=== PATIENT | male | born 1990 | race Caucasian/White ===

== ENCOUNTER 2017-12-28 20:24 | Inpatient (IN) | payer OTHER ==
[~2017-12-28] VITALS: Ht 188 cm; Wt 75.4 kg
--- NOTE | 2017-12-28 20:29 | ED PSYCHIATRIC COMPLAINT ---
History of Present Illness General Chief Complaint: Psychiatric Related Complaint Stated Complaint: +SI Source: patient, EMS, police Exam Limitations: no limitations Vital Signs & Intake/Output Vital Signs & Intake/Output Vital Signs Date Time Temp Pulse Resp B/P B/P Pulse O2 O2 Flow FiO2 Mean Ox Delivery Rate 12/29 1308 97.8 91 18 128/73 94 Room Air 12/29 1055 97.6 90 17 133/84 12/29 1052 97.6 90 17 133/84 92 Room Air 12/29 0840 98.2 88 17 129/73 12/29 0836 98.2 88 17 129/73 96 Room Air 12/29 0616 96.2 95 16 117/67 99 Room Air 12/29 0010 88 16 132/72 100 Room Air Room Air 12/28 2251 98.1 106 20 136/71 100 Room Air 12/28 2041 Room Air 12/28 2039 98.4 101 22 148/74 99 Room Air ED Intake and Output 12/29 0000 12/28 1200 Intake Total 240 Output Total Balance 240 Intake, Oral 240 Triage Nurses Notes Reviewed? yes Onset: Gradual Duration: week(s):, waxing and waning Timing: recent history Severity: moderate Associated Symptoms: anxiety, suicidal ideation HPI: 27 YO gentleman, h/o depression, was previously taking prozac, brought in by emiliano LADD for suicidal ideation. He notes that he has been under increased stress lately due to a recent move. His fiance called 911 due to making suicidal comments. He inflicted superficial abrasions on his left wrist. He notes that he also fell yesterday, landing with his face on the pavement. He did not lose consciousness. He denies etoh or drugs. He asks to smoke a cigarette. (Seth RAMOS,Benjamin Krishna) Allergies Coded Allergies: No Known Allergies (12/28/17) Reconcile Medications No Known Home Medications (Kelley RAMOS,Emile Zelaya) Past History Medical History Any Pertinent Medical History? see below for history Psychiatric: depression Surgical History Surgical History: non-contributory Family History Hx Contributory? No (Benjamin Ann MD) Review of Systems Review of Systems Constitutional: Reports: no symptoms. EENTM: Reports: no symptoms. Respiratory: Reports: no symptoms. Cardiovascular: Reports: no symptoms. GI: Reports: no symptoms. Genitourinary: Reports: no symptoms. Musculoskeletal: Reports: no symptoms. Skin: Reports: no symptoms. Neurological/Psychological: Reports: no symptoms. Hematologic/Endocrine: Reports: no symptoms. Immunologic/Allergic: Reports: no symptoms. All Other Systems: Reviewed and Negative (Seth RAMOS,Benjamin Krishna) Physical Exam Physical Exam General Appearance: well developed/nourished, mild distress Head: mild abrasions on nasal bridge and forehead Eyes: Bilateral: PERRL, EOMI. Ears, Nose, Throat: normal pharynx, normal ENT inspection, hearing grossly normal Neck: normal inspection, supple Respiratory: normal breath sounds Cardiovascular: regular rate/rhythm Gastrointestinal: soft, non-tender Extremities: normal range of motion Neurological/Psychiatric: agitated, anxious Appearance/Memory/Insight: denies illness, disheveled, impaired insight Behavoir/Eye Contact/Speech: belligerent Thoughts/Hallucinations: no apparent hallucination Skin: intact, normal color, warm/dry SAD PERSONS SAD PERSONS Response Value Male Sex? yes 1 Depression/Hopelessness? yes 2 Excessive Ethanol/Drug Use? yes 1 Rational Thinking Loss? yes 2 Single//? yes 1 Social Support? has no support 1 Total 8 SAD PERSONS Done? yes (Seth RAMOS,Benjamin Krishna) Progress Differential Diagnosis: drug intoxication, alcohol intoxication vs other. Plan of Care: Orders Procedure Date/time Status Regular Diet 12/29 B Active Admit to inpatient psych 12/29 1427 Active CIWA 12/29 0742 Active Continuous Observation Monitor 12/28 2028 Active URINE DRUG SCREEN FOR ER ONLY 12/28 2028 Complete ETHANOL 12/28 2028 Complete COMPREHENSIVE METABOLIC PANEL 12/28 2028 Complete CBC WITHOUT DIFFERENTIAL 12/28 2028 Complete ED CRISIS PSYCH CONSULT 12/28 2028 Active Current Medications Sig/Elzbieta Start time Last Medication Dose Stop Time Status Admin Acetaminophen 650 MG Q4P PRN 12/28 2029 UNVr (Tylenol) Laboratory Tests 12/28/172104: Anion Gap 16, Estimated GFR > 60, BUN/Creatinine Ratio 11.1, Glucose 98, Calcium 9.2, Total Bilirubin 0.4, AST 50, ALT 37, Alkaline Phosphatase 70, Total Protein 8.0, Albumin 5.1 H, Globulin 2.9, Albumin/Globulin Ratio 1.8, CBC w Diff NO MAN DIFF REQ, RBC 4.88, MCV 99.1 H, MCH 32.5 H, MCHC 32.8 L, RDW 12.4, MPV 6.8 L , Gran % 54.1, Lymphocytes % 35.7, Monocytes % 8.6, Eosinophils % 1.0, Basophils % 0.6, Absolute Granulocytes 4.3, Absolute Lymphocytes 2.8, Absolute Monocytes 0.7 H, Absolute Eosinophils 0.1, Absolute Basophils 0, Serum Alcohol 325.0 12/28/17 210: Urine Opiates Screen < 100, Methadone Screen < 40, Barbiturate Screen < 60, Ur Phencyclidine Scrn < 6.00, Amphetamines Screen < 100, U Benzodiazepines Scrn < 85, Urine Cocaine Screen < 50, Urine Cannabis Screen 7.40 Diagnostic Imaging: Viewed by Me: CT Scan. Discussed w/RAD: CT Scan. Radiology Impression: PATIENT: PAIGE AMBROSIO PRESENT AGE: 27 PATIENT ACCOUNT NO: [id number] : 90 LOCATION: [facility] ORDERING PHYSICIAN: Benjamin Ann MD SERVICE DATE: 12/28/17 EXAM TYPE: CAT - CT CERV SPINE WO IV CONTRAST; CT HEAD WO IV CONTRAST; CT MAXILLOFACIAL W/O CON EXAMINATION: CT HEAD WITHOUT CONTRAST CT CERVICAL SPINE WITHOUT CONTRAST CT MAXILLOFACIAL WITHOUT CONTRAST CLINICAL INFORMATION: Head injury. Facial injury. Headache. COMPARISON: None. TECHNIQUE: Contiguous axial imaging was performed from the skullbase to vertex without intravenous administration of contrast. Multidetector helical imaging was performed through the cervical spine and maxillofacial region. DLP: 1523 mGy-cm. FINDINGS: HEAD: There is no evidence of acute intracranial hemorrhage or territorial infarction. No abnormal mass effect or midline shift is seen. Mensah to white matter differentiation is well preserved. No extra-axial fluid collections are identified. The ventricles are normal in size. Brain parenchymal attenuation is normal. The osseous structures and soft tissues are normal. The mastoid air cells are well aerated. MAXILLOFACIAL: No maxillofacial fracture is identified. The orbits are normal. The mandible is intact. No periapical lucencies are seen. The soft tissues are unremarkable. CERVICAL SPINE: No acute fracture or dislocation is identified in the cervical spine. The disc spaces are maintained. No large disc protrusion is noted. The atlantoaxial articulation is normally maintained. The paraspinal soft tissues are normal. The lung apices are clear. IMPRESSION: 1. No acute intracranial pathology. 2. No evidence of acute cervical spine traumatic injury. 3. No maxillofacial fractures. DICTATED BY: Harry Galaviz MD DATE/TIME DICTATED:12/28/172137 CLAM SHUCKER:KASSIDY DATE/TIME TRANSCRIBED:2137 CONFIDENTIAL, DO NOT COPY WITHOUT APPROPRIATE AUTHORIZATION. < Electronically signed in Other Vendor System> SIGNED BY: Harry Galaviz MD 12/28/172155 Hand-Off Endorsed To: Emile Benson MD Endorsed Time: 0700 Pending: consult (Seth RAMOS,Benjamin Krishna) Comments: 12/29/2017 7:10:58 AM patient signed out to me by Dr. Ann at shift size changer. (Kelley RAMOS,Emile Zelaya) Departure Departure Disposition: STILL A PATIENT Condition: Stable Clinical Impression Primary Impression: Alcohol intoxication Secondary Impressions: Depression, Head injury Departure Forms: Customer Survey General Discharge Information (Seth RAMOS,Benjamin Krishna) Departure Prescriptions: Current Visit Scripts No Known Home Medications Psych Admission Note Psychiatric Admission: I have reviewed all the pertinent lab results and diagnostic results. PAIGE AMBROSIO will be admitted to our inpatient Psychiatric unit for treatment and care. (Kelley RAMOS,Emile Zelaya)
[2017-12-28 21:13] LABS: ABSOLUTE BASOPHIL COUNT 0 /CUMM (0.0-0.2); ABSOLUTE EOSINOPHIL COUNT 0.1 /CUMM (0.0-0.7); ABSOLUTE GRANULOCYTE CT 4.3 /CUMM (1.4-6.5); ABSOLUTE LYMPH COUNT 2.8 /CUMM (1.2-3.4); ABSOLUTE MONOCYTE COUNT 0.7 /CUMM (0.10-0.60); BASOPHIL % 0.6 % (0.0-2.0); GRANULOCYTE % 54.1 % (42.2-75.2); HEMATOCRIT 48.4 % (42-52); MEAN CORPUSCULAR HGB 32.5 PG (27.0-31.0); MEAN CORPUSCULAR HGB CONC 32.8 G/DL (33.0-37.0); MEAN CORPUSCULAR VOLUME 99.1 FL (80.0-94.0); MEAN PLATELET VOLUME 6.8 FL (7.4-10.4); PLATELET COUNT 326 /CUMM (130-400); RBC DISTRIBUTION WIDTH 12.4 % (11.5-14.5); RED BLOOD CELL CT 4.88 /CUMM (4.70-6.10); WHITE BLOOD CELL COUNT 7.9 /CUMM (4.8-10.8)
--- NOTE | 2017-12-28 21:56 | CT SCAN REPORT ---
EXAMINATION: CT HEAD WITHOUT CONTRAST CT CERVICAL SPINE WITHOUT CONTRAST CT MAXILLOFACIAL WITHOUT CONTRAST CLINICAL INFORMATION: Head injury. Facial injury. Headache. COMPARISON: None. TECHNIQUE: Contiguous axial imaging was performed from the skullbase to vertex without intravenous administration of contrast. Multidetector helical imaging was performed through the cervical spine and maxillofacial region. DLP: 1523 mGy-cm. FINDINGS: HEAD: There is no evidence of acute intracranial hemorrhage or territorial infarction. No abnormal mass effect or midline shift is seen. Mensah to white matter differentiation is well preserved. No extra-axial fluid collections are identified. The ventricles are normal in size. Brain parenchymal attenuation is normal. The osseous structures and soft tissues are normal. The mastoid air cells are well aerated. MAXILLOFACIAL: No maxillofacial fracture is identified. The orbits are normal. The mandible is intact. No periapical lucencies are seen. The soft tissues are unremarkable. CERVICAL SPINE: No acute fracture or dislocation is identified in the cervical spine. The disc spaces are maintained. No large disc protrusion is noted. The atlantoaxial articulation is normally maintained. The paraspinal soft tissues are normal. The lung apices are clear. IMPRESSION: 1. No acute intracranial pathology. 2. No evidence of acute cervical spine traumatic injury. 3. No maxillofacial fractures.
[2017-12-29] VITALS (8 sets, daily range): BP systolic 126–147; BP diastolic 70–88
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
[2017-12-30] VITALS (8 sets, daily range): BP systolic 118–136; BP diastolic 73–96
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
--- NOTE | 2017-12-30 15:40 | SOCIAL WORKER PROG NOTE PSYCH ---
Social Work Progress Note Progress Note Nela attempted to complete a social history at 2:00 pm today but pt was in group.
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
[2017-12-31] VITALS (8 sets, daily range): BP systolic 115–128; BP diastolic 62–79
--- NOTE | 2017-12-31 13:54 | SOCIAL WORKER PROG NOTE PSYCH ---
Social Work Progress Note Progress Note Spoke with Amauri's Father. He reported seeing Amauri last night and thought he looked good. He feels that Amauri is appreciative of being here. He would love for Amauri to be able to come on vacation with the family. He feels it would be a positive thing. He has no safety concerns about Amauri and shared that he was quite shocked to hear he was making suicidal statements. He feels Amauri has alot going for him. He feels he just needs to continue to work on the drinking. If he were to go on the trip he would return on Thursday. He would like Amauri to try and see if he can do the day time IOP. If Amauri goes on the trip tomorrow. He would need to leave the hospital by 8-8:30am to make his flight in [place]. Supportive meeting held with Amauri and Juju (significant other). Dr. Dias and Kamala (medical student) were also in attendance. Juju expressed her concerns around Amauri's drinking and her ability to trust him. Amauri understands that he will need to show he is working on his recovery to earn her trust. He was agreeable to doing [facility] IOP the dual 10-1pm program. He thinks this will work out okay with his work schedule. He is also open to trying AA. We talked about Amauri going on the family vacation with Dad. Juju appears ambivalent about going on the vacation and may end up staying home. Amauri stated he understood. She expressed how stressful the last few weeks have been and how she needs time to just decompress. She also shared that she is speaking to a counselor around how Amauri's behaviors have impacted her. She is commited to working on the relationship and brought up couple's therapy as well. Amauri seems agreeable to trying this. They talked about working out their issues around starting to live together and how compromise on things would be helpful. Juju asked if Amauri would allow her to know what is going on with him in IOP? He agreed and understands there needs to be transparency. She is agreeable to picking him up tomorrow between 8-8:30am to get home. Scheduled an IOP intake at [facility] for 01/07 9:30am.
--- NOTE | 2017-12-31 14:08 | CP SOUTH PROGRESS NOTE PSYCH ---
Psych (Inpt) Progress Note Progress Note Include the following elements, when applicable: Involvement in the active treatment of the patient with behavioral observations of the patient and the patient's response to the treatment. Review of the ongoing treatment process in the context of the treatment plan. Indication of how multi-disciplinary staff members are carrying out the treatment plan. Plans for future interventions and recommendations for revision of the treatment plan. Liaison with other physicians/providers. Progress Note: Case and treatment plan discussed in team meeting. Staff reports that the patient is denying SI. Couple's meeting is scheduled for 3 pm. Patient seen with medical student at 10:18 a.m. Thinking seems cogent. Appears awake and alert. Seems less fragile today, less labile. Reports he needs to go into a program when he leaves here. Reports he is accepting being here. Feels supported by girlfriend and parents. Wants to attend AA 3-4x/week. Wants to go on family trip tomorrow to [place]. Affect is calm and blunted. Mood: "I'm feeling optimistic about things... a little worried about work." Rates sad mood and anxiety both about 3-4/10. Denies feeling hopeless, helpless or worthless. Denies feeling guilty anymore. Denies active and passive suicidal ideation. Denies homicidal ideation. Denies auditory and visual hallucinations and paranoid ideation. Reports sleep is okay but his stomach was a little upset. Appetite is fine, improving from time of admission. Reports energy is good. Tolerating medications except for mild stomach queasiness. IMPRESSION: Slow progress. Continue present treatment plan. Await outcome of today's couple's meeting. Treatment team is trying to assess possibility of discharge tomorrow, which is patient's request.
[2017-12-31] MEDS ORDERED: NICORELIEF2 MG PO (15:33)
[2017-12-31] MEDS ORDERED: ACAMPROSATE CA333 M1 PO (15:33)
[2017-12-31] MEDS ORDERED: TRAZODONE HCL50 M1 PO (15:33)
[2017-12-31] MEDS ORDERED: GABAPENTIN300 M2 PO (15:33)
--- NOTE | 2017-12-31 15:40 | Patient Discharge Instructions ---
Psych Discharge Inst General Discharge Information Reason for Admission: Reportedly made suicidal statements verbally and by text. Cut left wrist superficially with a kitchen knife. Had been drinking. Psy Discharge Primary Diag+ Unspecified depression Psy Discharge Secondary Diag+ Alcohol use disorder Superficial L wrist lac Abrasions on face Summary Tests/Major Procedures Lab ALT 37 U/L 12/28/172104 AST 50 U/L 12/28/172104 Albumin 5.1 g/dL H 12/28/172104 BUN 10 mg/dL 12/28/172104 Carbon Dioxide 27 mmol/L 12/28/172104 Chloride 101 mmol/L 12/28/172104 Cholesterol 183 MG/DL 12/28/172104 Cholesterol/HDL Ratio 2 % 12/28/172104 Creatinine 0.9 mg/dL 12/28/172104 Estimated GFR > 60 ml/min 12/28/172104 Glucose 98 mg/dL 12/28/172104 HDL Cholesterol 97 mg/dL H 12/28/172104 Hemoglobin A1c 5.0 % 12/28/172104 LDL Cholesterol, Calc 76 mg/dL 12/28/172104 Potassium 4.4 mmol/L 12/28/172104 Sodium 144 mmol/L 12/28/172104 TSH &T3 &Free T4 Intrp 0.758 uIU/mL 12/28/172104 Absolute Monocytes 0.7 /CUMM H 12/28/172104 Hct 48.4 % 12/28/172104 Hgb 15.9 G/DL 12/28/172104 MCH 32.5 PG H 12/28/172104 MCHC 32.8 G/DL L 12/28/172104 MCV 99.1 FL H 12/28/172104 MPV 6.8 FL L 12/28/172104 Plt Count 326 /CUMM 12/28/172104 RBC 4.88 /CUMM 12/28/172104 WBC 7.9 /CUMM 12/28/172104 Serum Alcohol 325.0 MG/DL 12/28/172104 SERVICE DATE: 12/28/17 EXAM TYPE: CAT - CT CERV SPINE WO IV CONTRAST; CT HEAD WO IV CONTRAST; CT MAXILLOFACIAL W/O CON EXAMINATION: CT HEAD WITHOUT CONTRAST CT CERVICAL SPINE WITHOUT CONTRAST CT MAXILLOFACIAL WITHOUT CONTRAST CLINICAL INFORMATION: Head injury. Facial injury. Headache. COMPARISON: None. TECHNIQUE: Contiguous axial imaging was performed from the skullbase to vertex without intravenous administration of contrast. Multidetector helical imaging was performed through the cervical spine and maxillofacial region. DLP: 1523 mGy-cm. FINDINGS: HEAD: There is no evidence of acute intracranial hemorrhage or territorial infarction. No abnormal mass effect or midline shift is seen. Mensah to white matter differentiation is well preserved. No extra-axial fluid collections are identified. The ventricles are normal in size. Brain parenchymal attenuation is normal. The osseous structures and soft tissues are normal. The mastoid air cells are well aerated. MAXILLOFACIAL: No maxillofacial fracture is identified. The orbits are normal. The mandible is intact. No periapical lucencies are seen. The soft tissues are unremarkable. CERVICAL SPINE: No acute fracture or dislocation is identified in the cervical spine. The disc spaces are maintained. No large disc protrusion is noted. The atlantoaxial articulation is normally maintained. The paraspinal soft tissues are normal. The lung apices are clear. IMPRESSION: 1. No acute intracranial pathology. 2. No evidence of acute cervical spine traumatic injury. 3. No maxillofacial fractures. Studies Pending at DC: None. Patient Instructions Contact Information Your Psychiatrist on [facility] was Benjamin Dias MD * If you are experiencing an emergency related to this hospitalization, please call [phone] to contact the treating psychiatrist or the psychiatrist-on- call. * To Request a copy of your medical records, please contact the Medical Records Department at [phone]. * To request results of studies pending at the time of discharge, please call [phone]. * Continue your Medications until directed to stop by your Healthcare provider. General Medication Information Please continue to take your new medications and your continued home medications , unless otherwise indicated on your discharge medication list, or unless directed by your MD or [facility] to stop them. Special Instructions Diet Regular Activity Normal Other Inst/Recommendations Stay away from drugs and alcohol! - Tobacco Use Treatment Offered Post DC Medications Offered: Script Given-See Med List Post DC Tobacco Treatment Plan: [facility] Program Appt Time: 1600 - EtOH/Drug Use D/O Treatment Offered Post DC Medications Offered: Med Not Indicated for D/O (Cam[place]) Post DC EtOH/SubAbuse TX Plan: [place] SubAbuse/Dual IOP Program Appt Date: 01/07/18 Program Appt Time: 0900 (Exact time TBA.) Metabolic Screening ([x]) Not Applicable, patient not on a neuroleptic. OR () Patient on a neuroleptic(s) . Enter below results for Hemoglobin A1C, and lipid panel if obtained during the last 365 days. BMI: Blood Pressure: 128/79 Laboratory Results From [place] EHR (If applicable): Advance Directives Does the Patient have Medical Advance Directives No/Refused further info Does Pt have Psychiatric Advance Directives? No/Refused further info Does Patient have a Designated Surrogate Decision Maker: No Information About Psychiatric Advance Directives Provided? Refused Discharge Plan Post Hospital Treatment Plan: 1) [place]. To be with family at all times. No drinking or drugging! 2) Then to return home to live with girlfriend, Juju. 3) Referral to Dual IOP intake on 01/07/18.
--- NOTE | 2017-12-31 16:25 | IP INCIDENTAL NOTE PSYCH ---
Incidental Note Notation: workers' compensation mediator spoke with patient's father, who supports patient's going on trip to [place] tomorrow with family. Patient seen at couple's meeting with his girlfriend, Juju, with Angélica Petersen LCSW and with medical student. PLAN: Discharge tomorrow morning. Dr. Miguel has agreed to see patient in the morning.
[2018-01-01 07:41] VITALS: BP 127/90
[2018-01-01 07:45] VITALS: BP 127/90
--- NOTE | 2018-01-01 08:00 | CP SOUTH PROGRESS NOTE PSYCH ---
Psych (Inpt) Progress Note Progress Note Case was discussed with Dr. Dias yesterday. I reviewed the patient's electronic record. I interviewed the patient. Vital Signs Date Time Temp Pulse B/P 01/01 0745 97.6 60 127/90 01/01 0741 97.6 60 127/90 01/01 2020 98.8 68 118/62 12/31 2018 98.8 68 118/62 12/31 1609 90 126/78 12/31 1607 90 126/78 12/31 1222 82 128/79 Mental Status Examination: The patient was alert and oriented to time, place, and person. The patient reported that he is looking forward to spending a few nights with his family in [place]. He reported that he feels ready for discharge and committed to doing the dual diagnosis program at the intensive outpatient program starting on 01/07/2018. He denies feeling depressed, and his affect looked reasonably within normal range. He denied feeling hopeless, and denied wishing , and denied thinking of suicide. The patient reported that his anxiety is manageable. The patient denied any hallucinations, he denied feeling paranoid, and there were no delusions during the interview. The patient was coherent with no evidence of thought disorder. There was no evidence that he was responding to internal stimuli. His speech was normal, not pressured, and not slurred. He reported that he didn't sleep that great last night but because he felt cold. Assessment: A 27-year-old engaged white male who was admitted because of thoughts of suicide and superficial cuts to wrist while intoxicated. Patient was admitted on a physician emergency certificate. He seems to have had an uneventful detoxification with no severe withdrawal. He seems to have shown improvement in his mood anxiety and insight. He has been free of thoughts of suicide for the past 48 hours and is willing to do the dual diagnosis intensive outpatient program upon his return from a family vacation in [place]. The patient is slated for discharge for today and does not seem to present an eminent risk to self or others, and there is no evidence of grave disability. The patient is appropriate for discharge. Treatment plan update: Discharge today to go with family for a vacation in [place] for 4 nights Patient is to do the dual diagnosis intensive outpatient program starting on January 07 upon his return from vacation Please see the discharge summary and instructions for details on his discharge medications, discharges diagnosis, and aftercare plans/referrals.
--- NOTE | 2018-01-01 08:07 | DISCHARGE SUMMARY REPORT-PSYCH ---
Visit Information Visit Dates/Diagnosis' Admission Date: 12/29/17 Discharge Date: 01/01/18 Reason for Admission: Reportedly made suicidal statements verbally and by text. Cut left wrist superficially with a kitchen knife. Had been drinking. Psy Discharge Primary Diag: Unspecified depression Psy Discharge Secondary Diag: Alcohol use disorder Superficial L wrist lac Abrasions on face Hospital Course Significant Lab Findings: There were no significant abnormalities and the completed: Blood count of the chemistry Lab Serum Alcohol 325.0 MG/DL 12/28/172104 Course Complications: The patient did not have any complications when he was on the inpatient psychiatric unit Consultations: The patient had a history and physical examination performed by the lab head/ hospitalist. Please refer to the patient's electronic health record for the details of the H&P. Allergies: Coded Allergies: No Known Allergies (12/28/17) Hospital Course/TX Response: The patient had a relatively short stay in the hospital. He was safely detoxified from alcohol without any major withdrawals. His withdrawal was uneventful, no delirium and no seizures. 12/30/2017: Initial Impression and Plan (Benjamin Dias MD): The patient is here after cutting wrist superficially and having made suicidal comments while intoxicated. Hx alcohol use problems. Likely has relationship conflict with girlfriend. They are in a new home together. Patient has work stress. DSM 5 Diagnosis(es): Unspecified depression. Alcohol use disorder. Superficial L wrist laceration. Abrasions on face. Treatment Plan: The patient will be monitored on the unit for safety, alcohol withdrawal and mood disorder. States he gets depressed when drinking and anxious when not drinking. He would like to continue with Neurontin prn. He is not interested in an antidepressant. Major risks/benefits of Campral were discussed with the patient and he would like this medication to help with alcohol cravings. Additional information is needed from collaterals. Anticipate once clinically stable, that the patient will return to home and girlfriend and be referred to an IOP. He had been planning on [facility] prior to his admission here. \ 12/31/2017: (Benjamin Dias MD): Slow progress. Continue present treatment plan. Await outcome of today's couple's meeting. Treatment team is trying to assess possibility of discharge tomorrow, which is patient's request. 01/01/2018: (Dr. Myriam MD): Mental Status Examination: The patient was alert and oriented to time, place, and person. The patient reported that he is looking forward to spending a few nights with his family in [place]. He reported that he feels ready for discharge and committed to doing the dual diagnosis program at the intensive outpatient program starting on 01/07/2018. He denies feeling depressed, and his affect looked reasonably within normal range. He denied feeling hopeless, and denied wishing , and denied thinking of suicide. The patient reported that his anxiety is manageable. The patient denied any hallucinations, he denied feeling paranoid, and there were no delusions during the interview. The patient was coherent with no evidence of thought disorder. There was no evidence that he was responding to internal stimuli. His speech was normal, not pressured, and not slurred. He reported that he didn't sleep that great last night but because he felt cold. Assessment: A 27-year-old engaged white male who was admitted because of thoughts of suicide and superficial cuts to wrist while intoxicated. Patient was admitted on a physician emergency certificate. He seems to have had an uneventful detoxification with no severe withdrawal. He seems to have shown improvement in his mood anxiety and insight. He has been free of thoughts of suicide for the past 48 hours and is willing to do the dual diagnosis intensive outpatient program upon his return from a family vacation in [place]. The patient is slated for discharge for today and does not seem to present an eminent risk to self or others, and there is no evidence of grave disability. The patient is appropriate for discharge. Treatment plan update: Discharge today to go with family for a vacation in [place] for 4 nights Patient is to do the dual diagnosis intensive outpatient program starting on January 07 upon his return from vacation Please see the discharge summary and instructions for details on his discharge medications, discharges diagnosis, and aftercare plans/referrals. Discharge HBIPS - Tobacco Use Treatment Offered Post DC Medications Offered: Script Given-See Med List Post DC Tobacco Treatment Plan: Refused Tobacco Tx Pgm - EtOH/Drug Use D/O Treatment Offered Post DC Medications Offered: Script Given-See Med List Post DC EtOH/SubAbuse TX Plan: [facility] SubAbuse/Dual IOP Metabolic Screening - Screen if on a Neuroleptic Medication - Metabolic screening should include: - Blood Pressure, BMI, Glucose or Hgb A1c, & a - Lipid profile from within the past 365 days. Metabolic Screening ([X]) Not Applicable, patient not on a neuroleptic. Discharge Instructions General Discharge Information Multiple Neuroleptics: ([X]) Not Applicable Discharge Diet Regular Discharge Activity Normal DC Disposition: Discharged to home/self-care patient will be going on short vacation with family to [place] and then starting the dual diagnosis IOP at [facility] on 01/07/2018 Referrals Ordered Referrals Provider Referral 01/07/18 For Groups: [[facility] IOP] [facility] Intensive Outpatient Program for mental health and substance use Intake 01/07/18 9:30am [address] [place] [address] Prescriptions Start taking the following new medications: Nicotine (Nicorelief) 2 MG GUM 2 Milligram ORAL EVERY 2 HOURS NEEDED as needed for nicotine craving Qty = 100 No Refills Comments: Last Taken:12/31/17 Time:2045 Gabapentin (Gabapentin) 300 MG CAPSULE 1 Capsule ORAL EVERY SIX HOURS NEEDED as needed for ANXIETY/AGITATION/ INSOMNIA Qty = 42 No Refills Comments: Last Taken:12/31/17 Time:0800 Trazodone HCl (Trazodone HCl) 50 MG TABLET 1 Tablet ORAL AT BEDTIME as needed for INSOMNIA Qty = 14 No Refills Comments: Last Taken:12/30/17 Time:2130 Acamprosate Calcium (Acamprosate Calcium) 333 MG TABLET.DR 2 Tablet ORAL THREE TIMES DAILY Qty = 84 No Refills Instructions: Campral 666 mg po t.i.d. Comments: Last Taken:01/01/18 Time:0745 Other Inst/Recommendations Stay away from drugs and alcohol! Studies Pending at Discharge None. Copies To: [facility]-
--- NOTE | 2018-01-01 09:04 | SOCIAL WORKER PROG NOTE PSYCH ---
Social Work Progress Note Progress Note Amauri was ready to go early this morning. He was smiling and mood stable. Girlfriend Juju came shortly after 8am to pick him up. He requested a letter stating he was here receiving tx. The letter was typed up and given to him. Reviewed his appt. for IOP scheduled for next at 9:30a.
--- NOTE | 2018-01-01 09:05 | SOCIAL WORKER PROG NOTE PSYCH ---
Social Work Progress Note Faxed Referral(s) Referred To: [facility] Transition of Care Documents sent: Health Summary Faxed to: [facility] Fax #: [phone] Faxed by: Angélica Petersen Date faxed: 01/01/18 Time Faxed: [phone]
== END 2018-01-01 08:20 | DRG 754 ==
LOC: ERH 20:24 → CP SOUTH 12-29 14:27 → ERHI 12-29 14:27 → ENTRNSPT 12-29 17:10 → EDTRNSPT 12-29 17:17 → EDTRNSPTSTS 12-29 17:17 → CP SOUTH 12-29 17:26 → CMPTRNSPT 12-29 17:28 → CP SOUTH 12-30 11:06
PROVIDERS: Pediatrics
DX: F32.9 Major depressive disorder, single episode, unspecified (principal); Z72.89 Other problems related to lifestyle; S61.512A Laceration without foreign body of left wrist, initial encounter; S00.81XA Abrasion of other part of head, initial encounter; X78.9XXA Intentional self-harm by unspecified sharp object, initial encounter; Y92.009 Unspecified place in unspecified non-institutional (private) residence as the place of occurrence of the external cause
CPT/HCPCS: 80307; G0480; J0515; J1630; J3490; Q2036

== ENCOUNTER 2018-03-15 17:48 | Inpatient (IN) | payer OTHER ==
[~2018-03-15] VITALS: Ht 188 cm; Wt 77.6 kg
[~2018-03-15 17:48] MED LIST: ACAMPROSATE CA333 M1 PO; GABAPENTIN300 M2 PO; NICORELIEF2 MG PO; TRAZODONE HCL50 M1 PO
--- NOTE | 2018-03-15 18:14 | ED PSYCHIATRIC COMPLAINT ---
History of Present Illness General Chief Complaint: Psychiatric Related Complaint Stated Complaint: WANTS TO DETOX FROM ALCOHOL LAST DRINK X1 HOUR AGO Source: patient Exam Limitations: no limitations Vital Signs & Intake/Output Vital Signs & Intake/Output Vital Signs Date Time Temp Pulse Resp B/P B/P Pulse O2 O2 Flow FiO2 Mean Ox Delivery Rate 03/16 1503 68 115/58 07/10 1406 97.5 68 18 115/58 98 Room Air / 1115 98.0 74 18 124/72 97 Room Air / 0822 98.0 74 18 115/69 98 Room Air 07/10 0537 97.4 56 18 98/59 98 Room Air 07/10 0240 97.2 65 16 104/68 07/10 0240 97.2 65 16 104/68 98 Room Air 07/10 0040 97.5 59 18 101/70 07/10 0040 97.5 59 18 101/70 96 Room Air 07/ 2240 98.0 89 18 112/70 07/09 2236 98.0 89 18 112/70 98 Room Air 07/ 1925 97.6 82 16 114/60 07/09 1920 97.6 82 16 114/60 97 Room Air 07/ 1837 98.4 103 18 137/80 07/09 1819 Room Air 07/ 1805 98.4 103 18 137/80 96 Room Air ED Intake and Output 03/16 0000 03/15 1200 Intake Total 1000 Output Total Balance 1000 Intake, IV 1000 Intake, Oral 0 Patient 180 lb Weight Weight Reported by Patient Measurement Method Allergies Coded Allergies: No Known Allergies (12/28/17) Triage Note: PT HERE FOR DETOX FROM ETOH. PT ADMITS TO DRINKING 10 TO 15 SHOTS DAILY. PT'S LAST DETOX WAS ONE WEEK AGO AT [facility] FOR THREE DAYS. PT STATES HE GOT OUT AND STARTED DRINKING AGAIN. PT DENIES DRUG USE. PT DENIES SI/HI. PT HAVING NAUSEA AT THIS TIME. PT DRANK TWO SHOTS 2 HOURS AGO. Triage Nurses Notes Reviewed? yes Onset: Abrupt Duration: constant Severity: severe Severity Numbers: 9 HPI: Patient is a 27-year-old male with a past medical history of alcohol abuse who presents emergency room with requests of alcohol detox where he just left a detox facility approximately 10 days Patient drank a few shots prior to coming in however he HAS HAD 2 hours of dry heaving and persistent nausea and chills. Denies any abdominal pain. Denies any fevers. Denies any history of suicidal ideation or homicidal ideation denies any history of seizures or delirium tremens. Denies any illicit drug use (Patricio Stoddard) Reconcile Medications Gabapentin 400 MG CAPSULE 1 CAP PO TID MENTAL HEALTH (Reported) Sertraline HCl (Zoloft) 100 MG TABLET 1 TAB PO DAILY MENTAL HEALTH (Reported) Trazodone HCl 50 MG TABLET 1 TAB PO QPM PRN SLEEP (Reported) (Fuad Varela MD) Past History Travel History Traveled to [place] past 21 day No Medical History Any Pertinent Medical History? see below for history Neurological: NONE, none reported EENT: none reported Renal: liver and kidney functions x3 weeks labs signifcant for ETOH use Musculoskeletal: NONE Psychiatric: alcohol dependence, depression Endocrine: NONE Surgical History Surgical History: non-contributory Psychosocial History Who do you live with Other (see notes) What is your primary language Mongolian Tobacco Use: Current Daily Use Daily Tobacco Use Amount/Type: => 5 Cigarettes daily ETOH Use: alcoholic Illicit Drug Use: denies illicit drug use Family History Hx Contributory? No (Patricio Stoddard) Review of Systems Review of Systems Constitutional: Reports: see HPI. EENTM: Reports: no symptoms. Respiratory: Reports: no symptoms. Cardiovascular: Reports: no symptoms. GI: Reports: see HPI, nausea. Genitourinary: Reports: no symptoms. Musculoskeletal: Reports: no symptoms. Skin: Reports: no symptoms. Neurological/Psychological: Reports: no symptoms. Hematologic/Endocrine: Reports: no symptoms. Immunologic/Allergic: Reports: no symptoms. All Other Systems: Reviewed and Negative (Patricio Stoddard) Physical Exam Physical Exam General Appearance: moderate distress Head: atraumatic Eyes: Bilateral: normal appearance. Ears, Nose, Throat: hearing grossly normal Neck: normal inspection Respiratory: normal breath sounds, chest non-tender Cardiovascular: regular rate/rhythm Gastrointestinal: normal bowel sounds, soft, non-tender Extremities: normal range of motion Neurological/Psychiatric: no motor/sensory deficits, awake, calm Appearance/Memory/Insight: appropriate appearance, appropriate insight, disheveled Behavoir/Eye Contact/Speech: cooperative Thoughts/Hallucinations: normal thought pattern, no apparent hallucination Skin: intact, normal color SAD PERSONS Done? patient not suicidal (Patricio Stoddard) Progress Differential Diagnosis: drug intoxication, drug overdose, drug withdrawal, electrolyte abnormality, encephalitis, hypoglycemia, hypothyroidism, IC hem/mass /tumor, meningitis Plan of Care: Orders Procedure Date/time Status Regular Diet 03/16 B Active Continuous Observation Monitor 03/16 1900 Active Continuous Observation Monitor 03/16 1500 Active Continuous Observation Monitor 03/16 1100 Active Continuous Observation Monitor 03/[address] in observation 03/15 1917 Active ED Holding Orders 03/15 1917 Active Patient Data 03/15 1917 Active Vital Signs 03/15 1917 Active Code Status 03/15 1917 Active Intake & Output 03/15 1819 Active CIWA 03/15 1809 Active LIPASE 03/15 1809 Complete ETHANOL 03/15 1809 Complete COMPREHENSIVE METABOLIC PANEL 03/15 1809 Complete CBC WITHOUT DIFFERENTIAL 03/15 1809 Complete URINE DRUG SCREEN FOR ER ONLY 03/15 175 Complete Current Medications Sig/Elzbieta Start time Last Medication Dose Stop Time Status Admin Ondansetron HCl 4 MG ONCE ONE 03/16 1500 CAN (Zofran) 03/16 1501 Clonidine 0.1 MG Q8 03/16 1453 AC 03/16 (Catapres) 1503 Gabapentin 300 MG Q8 03/16 1453 AC 03/16 (Neurontin) 1503 Laboratory Tests 03/15/181814: Anion Gap 18 H, Estimated GFR > 60, BUN/Creatinine Ratio 10.0, Glucose 105 H, Calcium 9.0, Total Bilirubin 0.3, AST 34, ALT 34, Alkaline Phosphatase 53, Total Protein 7.6, Albumin 4.7, Globulin 2.9, Albumin/Globulin Ratio 1.6, Lipase 227, CBC w Diff NO MAN DIFF REQ, RBC 4.83, MCV 96.6 H, MCH 32.5 H, MCHC 33.6, RDW 13.4, MPV 7.0 L, Gran % 56.5, Lymphocytes % 33.2, Monocytes % 9.3, Eosinophils % 0.6, Basophils % 0.4, Absolute Granulocytes 3.6, Absolute Lymphocytes 2.1, Absolute Monocytes 0.6, Absolute Eosinophils 0, Absolute Basophils 0, Serum Alcohol 378.0 03/15/18 1800: Urine Opiates Screen < 100, Methadone Screen < 40, Barbiturate Screen < 60, Ur Phencyclidine Scrn < 6.00, Amphetamines Screen < 100, U Benzodiazepines Scrn 115 , Urine Cocaine Screen < 50, Urine Cannabis Screen < 5.00 After initial evaluation patient was given Zofran and fluids patient had improvement of nausea patient's alcohol was significantly high at 373 Patient's initial CIWA was scored 10 REPEAT CIWA 5 2245-REPEAT CIWA 4 Patient was given a nicotine patch No history of seizures Patient HAS [employer] insurance Hand-Off Endorsed To: Harry Eller MD Endorsed Time: 0100 Pending: consult (Patricio Stoddard) Hand-Off Endorsed To: Fuad Varela MD Endorsed Time: 0700 Pending: consult (aHrry Eller MD) Hand-Off Endorsed To: Emile Arreola DO Endorsed Time: 1500 Pending: other (DAMIÁN) (Fuad Vaerla MD) Departure Departure Disposition: STILL A PATIENT Condition: Guarded Clinical Impression Primary Impression: Alcohol dependence Referrals: Patient Has No Primary Care Dr (PCP/Family) Departure Forms: Customer Survey General Discharge Information (Patricio Stoddard) PA/PIT FURNACE OPERATOR Co-Sign Statement Statement: ED Attending supervision documentation- [X] I saw and evaluated the patient. I have also reviewed all the pertinent lab results and diagnostic results. I agree with the findings and the plan of care as documented in the PA's/PIT FURNACE OPERATOR's documentation. [X] I have reviewed the ED Record and agree with the PA's/PIT FURNACE OPERATOR's documentation. [] Additions or exceptions (if any) to the PAs/PIT FURNACE OPERATOR's note and plan are summarized below: [] (Harry Eller MD) Departure Comments 03/16/18 5 PM The patient was seen and evaluated by me. He has significant tremors. Repeat CIWA score being ordered now. He was signed out to me by Dr. Kelly 3 PM (Emile Arreola DO) Critical Care Note Critical Care Note Critical Care Time: 30-74 min (Patricio Stoddard) ED Attending Observation Initial Observation Note: I have seen and personally examined PAIGE AMBROSIO on 03/15/18 at 1917. I agree with the current emergency department documentation. The disposition (admission or discharge) is uncertain at this time, he needs a period of observation for the following reason(s): [Patient is intoxicated and is requesting detox. Patient CIWA score is moderately elevated. Patient will need close observation to determine if he will need treatment and a medical detox or if he will be stable for an outpatient detox for his alcohol dependency.] The ED Nurse caring for this patient has been personally informed as to what the patient is being observed for. Observation Re-Evaluation: I have reevaluated PAIGE AMBROSIO on 03/15/18 at 2359. The physical findings that support the continued need to observe this patient include [patient CIWA score is decreasing however he is still intoxicated. Patient will continue. Close observation. It is unsure if he will require admission for a few the stable for discharge. His lungs are clear to auscultation bilaterally. His abdomen is soft.]. (Daphnie RAMOS,Harry Duffy)
[2018-03-15 18:29] LABS: ABSOLUTE BASOPHIL COUNT 0 /CUMM (0.0-0.2); ABSOLUTE EOSINOPHIL COUNT 0 /CUMM (0.0-0.7); ABSOLUTE GRANULOCYTE CT 3.6 /CUMM (1.4-6.5); ABSOLUTE LYMPH COUNT 2.1 /CUMM (1.2-3.4); ABSOLUTE MONOCYTE COUNT 0.6 /CUMM (0.10-0.60); BASOPHIL % 0.4 % (0.0-2.0); EOSINOPHIL % 0.6 % (0-5); GRANULOCYTE % 56.5 % (42.2-75.2); HEMATOCRIT 46.7 % (42-52); MEAN CORPUSCULAR HGB 32.5 PG (27.0-31.0); MEAN CORPUSCULAR HGB CONC 33.6 G/DL (33.0-37.0); MEAN CORPUSCULAR VOLUME 96.6 FL (80.0-94.0); PLATELET COUNT 309 /CUMM (130-400); RBC DISTRIBUTION WIDTH 13.4 % (11.5-14.5); RED BLOOD CELL CT 4.83 /CUMM (4.70-6.10); WHITE BLOOD CELL COUNT 6.3 /CUMM (4.8-10.8)
[2018-03-15 18:37] VITALS: BP 137/80
[2018-03-15 19:25] VITALS: BP 114/60
[2018-03-15 22:40] VITALS: BP 112/70
[2018-03-16 00:40] VITALS: BP 101/70
[2018-03-16 02:40] VITALS: BP 104/68
[2018-03-16] MEDS ORDERED: GABAPENTIN400 M2 PO (10:28)
[2018-03-16] MEDS ORDERED: TRAZODONE HCL50 M1 PO (10:28)
[2018-03-16] MEDS ORDERED: ZOLOFT100 M1 PO (10:28)
[2018-03-16 17:09] VITALS: BP 108/60
[2018-03-16 21:23] VITALS: BP 96/68
--- NOTE | 2018-03-16 22:43 | History & Physical ---
Gentry Ferrell 03/16/18 2242: General Information and HPI MD Statement: I have seen and personally examined PAIGE AMBROSIO and documented this H&P. The patient is a 27 year old M who presented with a patient stated chief complaint of [alcohol detox]. Source of Information: patient Exam Limitations: no limitations History of Present Illness: Patient is a 27-year-old male with PMH of alcoholism and previous psychiatric admission for suicidal ideation presented to [facility] ED from home for alcohol detox. He has been drinking 10-15 shots of hard liquor per day and his last drink was this morning prior to the admission. He was in a detox facility 10 days ago but did not complete the program and left AMA. He reports having nausea and vomited once this morning but since then he has been dry heaving accompanied with one episode of diarrhea. He endorses a tremor more prominent when reaching for objects. He admits to having chills and diaphoresis. He attributes his cough to not smoking for a few days. He denies blurry vision, headache, difficulty breathing, palpitations, or abdominal pain. He also denies any history of seizures, ICU admissions due to detox. He denies any intravenous drug use and stopped using cocaine many years ago. He denies any suicidal ideation or hallucinations. 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 He is working with his therapist to figure out the underlying issues that cause his depression. Allergies/Medications Allergies: Coded Allergies: No Known Allergies (12/28/17) Home Med list Gabapentin 400 MG CAPSULE 1 CAP PO BID ANXIETY (Reported) Sertraline HCl (Zoloft) 100 MG TABLET 1 TAB PO DAILY MENTAL HEALTH (Reported) Trazodone HCl 50 MG TABLET 1 TAB PO QPM PRN SLEEP (Reported) Past History Travel History Traveled to [place] past 21 day No Medical History Neurological: NONE, none reported EENT: none reported Renal: liver and kidney functions x3 weeks labs signifcant for ETOH use Musculoskeletal: NONE Psychiatric: alcohol dependence, depression Endocrine: NONE Isolation History: Standard Surgical History Surgical History: non-contributory Past Family/Social History Psychosocial History Smoking Status: Current Everyday Smoker ETOH Use: alcoholic Illicit Drug Use: denies illicit drug use Review of Systems Review of Systems Constitutional: Reports: see HPI. EENTM: Reports: see HPI. Cardiovascular: Reports: see HPI. Respiratory: Reports: see HPI. GI: Reports: see HPI. Genitourinary: Reports: see HPI. Musculoskeletal: Reports: see HPI. Skin: Reports: see HPI. Neurological/Psychological: Reports: see HPI. Hematologic/Endocrine: Reports: see HPI. Immunologic/Allergic: Reports: see HPI. All Other Systems: Reviewed and Negative Exam & Diagnostic Data Last 24 Hrs of Vital Signs/I&O Vital Signs Date Time Temp Pulse Resp B/P B/P Pulse O2 O2 Flow FiO2 Mean Ox Delivery Rate 03/17 0045 98.0 59 16 110/74 97 Room Air 03/17 0014 98.0 70 20 118/64 98 Room Air 03/16 2125 64 96/68 03/16 2124 98.1 64 14 96/68 97 Room Air 03/16 2123 98.1 64 14 96/68 03/16 1712 99.1 101 18 108/60 98 Room Air 03/16 1709 98.4 85 18 108/60 03/16 1503 68 115/58 07 1406 97.5 68 18 115/58 98 Room Air 03/16 1115 98.0 74 18 124/72 97 Room Air 03/16 0822 98.0 74 18 115/69 98 Room Air / 0537 97.4 56 18 98/59 98 Room Air 03/16 0240 97.2 65 16 104/68 0710 0240 97.2 65 16 104/68 98 Room Air Intake & Output 03/17 0800 03/17 0000 03/16 1600 Intake Total Output Total Balance Patient 180 lb Weight Weight Reported by Patient Measurement Method Physical Exam General Appearance Alert, Oriented X3, Cooperative, No Acute Distress Skin Temp/Moisture Exam: Warm/Dry Sepsis Skin Exam (color): Normal for Ethnicity HEENT Atraumatic, PERRLA, EOMI Neck Supple Cardiovascular Regular Rate, Normal S1, Normal S2 Lungs Clear to Auscultation Abdomen Normal Bowel Sounds, Soft Neurological Normal Speech Extremities No Edema, Normal Pulses Assessment/Plan Assessment: 27 yo M with PMH of alcohol dependence, depression with suicidal ideation presents to [facility] ED for alcohol detox. Last [facility] score: 15 Na - 148 Problem List: 1. Alcohol Depedence 2. Hypernatremia - Ativan taper via CIWA - thiamine and folate - zofran prn for nausea - gentle hydration with NS (hypernatremia) - psych consult - full code As Ranked By This Provider Problem List: 1. Alcohol dependence 2. Alcohol intoxication 3. Depression Core Measures/Misc (05/24) Acute Coronary Syndrome ACS Diagnosis: No Congestive Heart Failure Congestive Heart Failure Diagnosis No Cerebrovascular Accident CVA/TIA Diagnosis: No VTE (View Protocol) VTE Risk Factors No risk factors No Mechanical VTE Prophylaxis d/t N/A MechProphylax Ordered No VTE Pharm Prophylaxis d/t NA PharmProphylax ordered Sepsis (View protocol) Sepsis Present: No If YES complete Sepsis Event Note If YES complete Sepsis Event Note Erinn Smims MD 03/17/18 0125: Core Measures/Misc (05/24) Sepsis (View protocol) If YES complete Sepsis Event Note If YES complete Sepsis Event Note Resident Review Statement Resident Statement: examined this patient, discussed with senior insight manager international, agreed with senior insight manager international, reviewed EMR data (avail), discussed with nursing, reviewed images Other Findings: Mr. Ambrosio is a 27 yr old gentleman with PMH significant for anxiety, depression and Alcohol abuse, recent admission to [facility] for suicidal ideation, presents for alcohol detox. Patient has been drinking hard liquor for the past 6 years. Says he has been trying to limit his drinking and was in a cold detox program in [place] 10 days ago, Has never been in an alcohol detox program before that but left AMA and started drinking again. He drinks 10-15 shots per day and his last drink was on the morning of presentation to the ER. He reports nausea with dry heaving when he came to the ER yesterday which has now resolved, but continues to have headaches and tremors. Denies any history of withdrawal seizures, history of intubation and also denies any suicidal or homicidal ideations. He reports a dry cough which he thinks is because of not having to smoke while in hospital, he smokes three quarters of pack per day and started smoking around 6 years ago. Vitals on admission were stable. Labs were significant for sodium of 148, anion gap 108 and creatinine 1.3. Serum alcohol Level was 378. U tox was negative Probelm List 1. Alcohol detox 2. Anion gap; Likely 2/2 to alcohol use 3. Hx of Anxiety, and Depression - Admit patient to general medicine floor - Start the patient on Ativan 2 mg every 6. - IV Ativan as needed per [facility] protocol - Multivitamin, folate and thiamine - Zofran as needed for nausea - Nicotine Patch 14mg daily. - Continue gabapentin, Zoloft and trazodone DVT prophylaxis; Alps and subcutaneous Lovenox Patient is full code
[2018-03-17 00:45] VITALS: BP 110/74
[2018-03-17 06:21] VITALS: BP 108/74
--- NOTE | 2018-03-17 07:18 | PN- Housestaff ---
Elissa RAMOS,Samantha 03/17/18 0718: Subjective Follow-up For: alcohol detox hypernatremia Subjective: Patient seen and examined. Overnight CIWA scores were at a max of 15 for nausea , vomiting, tremor, anxiety. The patient on interview is mildly tremulous, denies any nausea or vomiting on laying down but notes a bit of nausea when he sits up. The last time he vomited was last night. The patient denies any headache. He denies any suicidal or homicidal ideation, denies any hallucinations but does state that he "feels like him in a dream". The patient' s last drinks were yesterday when he had 7 vodka drinks. Review of Systems Constitutional: Reports: diaphoresis. EENTM: Reports: no symptoms. Cardiovascular: Reports: no symptoms. Respiratory: Reports: no symptoms. Gastrointestinal: Reports: nausea, vomiting. Genitourinary: Reports: no symptoms. Musculoskeletal: Reports: no symptoms. Skin: Reports: no symptoms. Neurological/Psychological: Reports: anxiety, tremors. Hematologic/Endocrine: Reports: no symptoms. Objective Last 24 Hrs of Vital Signs/I&O Vital Signs Date Time Temp Pulse Resp B/P B/P Pulse O2 O2 Flow FiO2 Mean Ox Delivery Rate 03/17 1442 99.2 67 18 110/68 95 Room Air 03/17 0621 97.6 70 16 108/74 97 Room Air 03/17 0045 98.0 59 16 110/74 97 Room Air 03/17 0014 98.0 70 20 118/64 98 Room Air 03/16 2125 64 96/68 03/16 2124 98.1 64 14 96/68 97 Room Air 03/16 2123 98.1 64 14 96/68 03/16 1712 99.1 101 18 108/60 98 Room Air 03/16 1709 98.4 85 18 108/60 Intake & Output 03/17 1600 03/17 0800 03/17 0000 Intake Total 240 Output Total Balance 240 Intake, Oral 240 Patient 180 lb Weight Weight Reported by Patient Measurement Method Physical Exam General Appearance: Alert, Oriented X3, Cooperative, No Acute Distress Skin: No Rashes, No Breakdown, No Significant Lesion Skin Temp/Moisture Exam: Warm/Dry HEENT: Atraumatic, PERRLA, EOMI, Mucous Membr. moist/pink Neck: Supple, No JVD Cardiovascular: Regular Rate, Normal S1, Normal S2, No Murmurs Lungs: Clear to Auscultation, Normal Air Movement Abdomen: Normal Bowel Sounds, Soft, No Tenderness, No Hepatospenomegaly, No Masses Neurological: Normal Speech, Strength at 5/5 X4 Ext, Normal Tone, Sensation Intact, Cranial Nerves 3-12 NL, Reflexes 2+ Extremities: No Clubbing, No Cyanosis, No Edema, Normal Pulses Vascular: Normal Pulses, Pulses Symmetrical Current Medications: Current Medications Sig/Elzbieta Start time Last Medication Dose Route Stop Time Status Admin Acetaminophen 650 MG Q6P PRN 03/16 2300 AC 03/17 PO 1548 Clonidine 0 .STK-MED ONE 03/16 2113 DC PO Clonidine 0.1 MG Q8 03/16 1453 DC 03/16 PO 1503 Cyanocobalamin/ 1 BAG ONCE ONE 03/17 0015 CAN Thiamine/Pyridoxine IV 03/17 0814 Dextrose/Water 1,000 ML Folic Acid 1 MG DAILY 03/17 900 DC PO Folic Acid 1 MG DAILY 03/17 0030 AC 03/17 PO 1023 Gabapentin 400 MG BID 03/17 900 AC 03/17 PO 1024 Gabapentin 0 .STK-MED ONE 03/16 2114 DC PO Heparin Sodium 5,000 UNIT Q8 03/16 2255 AC 03/17 (Porcine) SC 0546 Lorazepam 2 MG Q6 03/17 0015 AC 03/17 PO 1227 Lorazepam 0 Q1P PRN 03/17 0015 AC 03/17 IV 0038 Lorazepam 0 .STK-MED ONE 03/16 1933 DC PO Lorazepam 1 MG Q6P PRN 03/16 1915 DC PO Lorazepam 1 MG ONE ONE 03/16 191 DC 03/16 PO 03/16 191 1936 Multivitamins 1 TAB DAILY 03/17 900 DC PO Multivitamins 1 TAB DAILY 03/17 0030 AC 03/17 PO 1022 Nicotine 14 MG DAILY 03/17 900 AC 03/17 TOP 1025 Sertraline HCl 100 MG DAILY 03/17 09 AC 03/17 PO 1022 Thiamine HCl 100 MG DAILY 03/17 900 DC PO Thiamine HCl 100 MG DAILY 03/17 0030 AC 03/17 PO 1022 Trazodone HCl 50 MG QPM PRN 03/17 0015 AC PO Last 24 Hrs of Lab/Irineo Results Last 24 Hrs of Labs/Mics: Laboratory Tests 03/17/18 0604: Anion Gap 10, Estimated GFR > 60, BUN/Creatinine Ratio 15.0 Orders CIWA Score (last 24 hrs): 15 Assessment/Plan Assessment: Mr. Trujillo is a 27 yr old gentleman with PMH significant for anxiety, depression and Alcohol abuse, recent admission to [facility] for suicidal ideation, presents for alcohol detox. Patient has been drinking hard liquor for the past 6 years. Says he has been trying to limit his drinking and was in a cold detox program in [place] 10 days ago, Has never been in an alcohol detox program before that but left AMA and started drinking again. He drinks 10-15 shots per day and his last drink was on the morning of presentation to the ER. Vitals on admission were stable. Labs were significant for sodium of 148, anion gap 108 and creatinine 1.3. Serum alcohol Level was 378. U tox was negative, LFTs were normal, calcium normal, lipase normal Probelm List 1. Alcohol detox 2. Anion gap; Likely 2/2 to alcohol use: Closed on last blood draw 3. Hx of Anxiety, and Depression 4. AK I: Resolved today with decrease of creatinine from 1.3-0.8 5. Hypernatremia: Resolved today with decrease in sodium from 148-140 Patient admitted to general medicine floors but held in telemetry Continued the patient on Ativan per CIWA and also standing Ativan dose of 2 mg every 6 hours Multivitamin, folate and thiamine Follow-up phosphorus and magnesium levels and replete as necessary Anion gap has closed Zofran as needed for nausea Nicotine Patch 14mg daily. Continue gabapentin and anxiety, as well as Zoloft and trazodone Social work consult tomorrow with Frida as patient is requesting her, has worked with her in the past: Patient was recently at the [facility] for detox through [facility] and we will work to find a rehabilitation program for patient to go after he leaves here. The patient otherwise has been living with his parents in [place]. DVT prophylaxis; Alps and subcutaneous Lovenox Patient is full code Problem List: 1. Alcohol dependence 2. Alcohol intoxication Pain Ratin Pain Location: na Pain Goal: Remain pain free Pain Plan: na Tomorrow's Labs & Rationales: Marshall Luo 03/17/18 1123: Attending MD Review Statement Attending Statement Attending MD Statement: examined this patient, discuss w/resident/PA/OTOLARYNGOLOGIST, agreed w/resident/PA/OTOLARYNGOLOGIST, discussed with family, reviewed EMR data (avail), discussed with nursing, discussed with case mgmt Attending Assessment/Plan: Pt seen and examined at bedside. Etoh abuse and intoxication. doing ok on ciwa protocol. d/w case management . we will have oncology social work talk with him tomorrow to discuss rehab options. Hypernatremia- resolved. sodium today 140 from 148. BENNETT- resolved with fluids. Cr down to 0.8 from 1.3 Denies any suicidal ideation. d/w pt and his significant other in room the care plan.
[2018-03-17 14:42] VITALS: BP 110/68
[2018-03-17 22:55] VITALS: BP 118/74
[2018-03-18 05:59] VITALS: BP 102/58
--- NOTE | 2018-03-18 10:09 | PN- Housestaff ---
Elissa RAMOS,Samantha 03/18/18 1009: Subjective Follow-up For: alcohol detox Subjective: Patient seen and examined. He is eating breakfast on interview. His CIWA scores overnight have been from 0-4 for nausea, vomiting, anxiety. Vitals are stable overnight. The patient has no complaints. Review of Systems Constitutional: Reports: no symptoms. EENTM: Reports: no symptoms. Cardiovascular: Reports: no symptoms. Respiratory: Reports: no symptoms. Gastrointestinal: Reports: no symptoms. Neurological/Psychological: Reports: anxiety. Objective Last 24 Hrs of Vital Signs/I&O Vital Signs Date Time Temp Pulse Resp B/P B/P Pulse O2 O2 Flow FiO2 Mean Ox Delivery Rate 03/18 0559 98.8 63 18 102/58 97 Room Air 03/17 2255 99.0 68 18 118/74 96 Room Air 03/17 1442 99.2 67 18 110/68 95 Room Air Intake & Output 03/18 1600 03/18 0800 03/18 0000 Intake Total 500 500 Output Total Balance 500 500 Intake, Oral 500 500 Patient 171 lb Weight Physical Exam General Appearance: Alert, Oriented X3, Cooperative, No Acute Distress Skin: No Rashes, No Breakdown, No Significant Lesion Skin Temp/Moisture Exam: Warm/Dry Cardiovascular: Regular Rate, Normal S1, Normal S2, No Murmurs Lungs: Clear to Auscultation, Normal Air Movement Abdomen: Normal Bowel Sounds, Soft, No Tenderness Neurological: Normal Speech Current Medications: Current Medications Sig/Elzbieta Start time Last Medication Dose Route Stop Time Status Admin Acetaminophen 650 MG .STK-MED ONE 03/17 1545 DC PO 03/17 1546 Acetaminophen 650 MG Q6P PRN 03/16 2300 AC 03/17 PO 1548 Folic Acid 1 MG DAILY 03/17 0030 AC 03/17 PO 1023 Gabapentin 400 MG BID 03/17 09 AC 03/17 PO 2043 Heparin Sodium 5,000 UNIT Q8 03/16 2255 AC 03/18 (Porcine) SC 0532 Lorazepam 2 MG Q6 03/17 0015 AC 03/18 PO 0532 Lorazepam 0 Q1P PRN 03/17 0015 AC 03/17 IV 0038 Multivitamins 1 TAB DAILY 03/17 0030 AC 03/17 PO 1022 Nicotine 14 MG DAILY 03/17 09 AC 03/17 TOP 1025 Sertraline HCl 100 MG DAILY 03/17 900 AC 03/17 PO 1022 Thiamine HCl 100 MG DAILY 03/17 0030 AC 03/17 PO 1022 Trazodone HCl 50 MG QPM PRN 03/17 0015 AC PO Orders CIWA Score (last 24 hrs): 0-4 Assessment/Plan Assessment: Mr. Trujillo is a 27 yr old gentleman with PMH significant for anxiety, depression and alcohol abuse, recent admission to for suicidal ideation, presents for alcohol detox. Patient has been drinking hard liquor for the past 6 years. Says he has been trying to limit his drinking and was in a detox program in [place] 10 days ago, but left AMA and started drinking again. He drinks 10-15 shots per day and his last drink was on the morning of presentation to the ER. Patient has no suicidal ideation on interview at admission. Vitals on admission were stable. Labs were significant for sodium of 148, anion gap 108 and creatinine 1.3. Serum alcohol Level was 378. U tox was negative, LFTs were normal, calcium normal, lipase normal Probelm List 1. Alcohol detox 2. Anion gap; Likely 2/2 to alcohol use: Closed on last blood draw 3. Hx of Anxiety, and Depression 4. BENNETT: Resolved today with decrease of creatinine from 1.3-0.8 5. Hypernatremia: Resolved with decrease in sodium from 148-140 Patient admitted to general medicine floors but held in telemetry Continued the patient on Ativan per CIWA and also standing Ativan dose of 2 mg every 6 hours which we will decrease to 1.5 mg every 6 hours. Multivitamin, folate and thiamine Follow-up phosphorus and magnesium levels were within normal limits Anion gap has closed Zofran as needed for nausea Nicotine Patch 14mg daily. Continue gabapentin and anxiety, as well as Zoloft and trazodone Social work consult today with Frida as patient is requesting her, has worked with her in the past: Patient was recently at the [facility] for detox through [facility] and we will work to find a rehabilitation program for patient to go after he leaves here. The patient otherwise has been living with his parents in [place]. DVT prophylaxis; Alps and subcutaneous Lovenox Patient is full code Problem List: 1. Alcohol intoxication 2. Depression 3. Alcohol dependence 4. Alcohol withdrawal Pain Ratin Pain Location: na Pain Goal: Remain pain free Pain Plan: na Tomorrow's Labs & Rationales: cbc Marshall Singleton 03/18/18 1105: Attending MD Review Statement Attending Statement Attending MD Statement: examined this patient, discuss w/resident/PA/LINE TENDER, agreed w/resident/PA/LINE TENDER, reviewed EMR data (avail), discussed with nursing, discussed with case mgmt Attending Assessment/Plan: Etoh abuse and intoxication. doing ok on ciwa protocol. d/w case management . we will have medical social worker talk with him today to discuss rehab options. His CIWA scores are 0-4 this am and we will decrease his ativan to 1.5mg q6h for now. Hypernatremia- resolved. BENNETT- resolved with fluids. Denies any suicidal ideation.
--- NOTE | 2018-03-18 14:23 | Cons- Psychiatry ---
Psychiatric Consult Date of Consult: 03/18/18 (11:43 am, Dr Singleton) Reason for Consult: Please assess for suicidality and medication recommendations. History of Present Illness: Per Medicine note Dr Bowers: "Mr. Trujillo is a 27 yr old gentleman with PMH significant for anxiety, depression and alcohol abuse, recent admission to [facility] for suicidal ideation, presents for alcohol detox. Patient has been drinking hard liquor for the past 6 years. Says he has been trying to limit his drinking and was in a detox program in [place] 10 days ago, but left AMA and started drinking again. He drinks 10-15 shots per day and his last drink was on the morning of presentation to the ER. Patient has no suicidal ideation on interview at admission. Vitals on admission were stable. Labs were significant for sodium of 148, anion gap 108 and creatinine 1.3. Serum alcohol Level was 378. U tox was negative, LFTs were normal, calcium normal, lipase normal." Psychiatry was consulted on day 2 of admission because collateral information from mother to medical staff stated concern for patient's suicidality and that he is "hearing something in his head that says to kill himself." Medicine also requesting psychiatric medication recommendations. On exam, patient had sitter at bedside who left the room for interview. Patient was seated in bed, pleasant but somewhat evasive and minimizing events. Patient reports that he has attempted to go to detox/rehabilitation double times, the last time being a detox near [place] 6 days ago where he left AMA and immediately relapsed on alcohol. Patient is having worsening altercations with mother which precipitated presentation to ED. Per mother (Manasa [phone]), patient has become increasingly erratic and volatile, hiding bottles of alcohol around the house and being verbally abusive to the family while intoxicated mother has encouraged detox/rehabilitation and has a friend (Dangelo) who runs [facility] who is willing to take patient in however patient at this point has not shown for interviews with Dangelo. 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 Mother is encouraging a 28 day program. Patient however does not feel he can take time to do a 21 day program however is open to the idea of rehabilitation for a couple weeks. Patient denies any active SI, HI, AVH. Medical Economics Consultant contacted patient's fianc Juju ([phone]), who states that while this was not reported when patient came to ED, patient told her that he took "a lot" of gabapentin while intoxicated prior to her bringing him to the hospital. Patient states that he's been cutting himself with knives and has stated, "I really mean it, I'm going to jump off a bridge." Juju stated that patient attempted twice to jump out of the car going 40-50 miles an hour in an attempt to kill himself on the way to the hospital. Juju reported the patient had left to bottles of gabapentin 300 mg in her car. Bottle 1 was dispensed on 01/14/2018 with 14 pills currently in it. Bottle 2 was dispensed on 02/25/2018 with 8 pills left and it. Both bottles originally had 42 pills. It is uncertain how much patient may have taken, patient denies ingestion. Patient reports that his sleep has been very erratic, that he has had increased guilty feelings about his drinking, very low energy, poor appetite and anhedonia. Patient states that he had recently cut himself "knowing I wouldn't because people were there." Patient states that he is having increasing difficulty managing his drinking prefers vodka but will drink anything. Patient has 10-13 minutes per day. Patient denies history of seizures but reports DTs as recently as 1 week ago which were managed at home. Patient reports frequent blackouts and has had head trauma leading to loss of consciousness but can't remember when. Patient started drinking when he was 21 and said problem drinking began immediately. Patient denies any current withdrawal symptoms (is on standing Ativan 1.6 mg every 6 hours). Patient states last use of cocaine was 4 years ago, denies opiate use states he has used hallucinogens 2-3 times lifetime, denies benzo use. U tox negative on admission. Discussed options with patient, psychoeducation provided, patient in agreement with signing in voluntarily and awaiting inpatient bed for further treatment of depression and alcohol use disorder. Patient denies signs and symptoms of francy, trauma, psychosis (collateral also denies ssx psychosis on further interview). Patient states that he takes sertraline 100 mg in the morning for mood, gabapentin 400 mg twice a day when necessary anxiety, trazodone 50 mg when necessary insomnia ( rarely takes this), and was prescribed naltrexone but has not been taking it. Of note, patient is aware that mother has guns in her home, states that he is unaware where she keeps them. Mother states that she has a concealed carry permit and has 2 firearms. Mother counseled on firearms safety and was made aware that if the guns are in the home they should not be stored with the ammunition and they should be kept locked separately, but preferably removed from the home at this time. Mother states she will remove the guns from the home and store them at a friend's house who has a gun safe. Allergies: Coded Allergies: No Known Allergies (12/28/17) Current Medications: Current Medications Sig/Elzbieta Start time Last Medication Dose Route Stop Time Status Admin Acetaminophen 650 MG .STK-MED ONE 03/17 1545 DC PO 03/17 1546 Acetaminophen 650 MG Q6P PRN 03/16 2300 AC 03/17 PO 1548 Folic Acid 1 MG DAILY 03/17 0030 AC 03/18 PO 1039 Gabapentin 400 MG BID 03/17 0900 AC 03/18 PO 1039 Heparin Sodium 5,000 UNIT Q8 03/16 2255 AC 03/18 (Porcine) SC 1425 Lorazepam 1.5 MG Q6 03/18 1200 AC 03/18 PO 1208 Lorazepam 2 MG Q6 03/17 0015 DC 03/18 PO 0532 Lorazepam 0 Q1P PRN 03/17 0015 AC 03/17 IV 0038 Multivitamins 1 TAB DAILY 03/17 0030 AC 03/18 PO 1039 Nicotine 14 MG DAILY 03/17 09 AC 03/18 TOP 1039 Sertraline HCl 100 MG DAILY 03/17 09 AC 03/18 PO 1039 Thiamine HCl 100 MG DAILY 03/17 0030 AC 03/18 PO 1039 Trazodone HCl 50 MG QPM PRN 03/17 0015 AC PO Past History Past Medical History Neurological: NONE EENT: NONE Cardiovascular: NONE Respiratory: NONE Gastrointestinal: NONE Hepatic: NONE Renal: liver and kidney functions x3 weeks labs signifcant for ETOH use Musculoskeletal: NONE Psychiatric: alcohol dependence, depression Endocrine: NONE Blood Disorders: NONE Cancer(s): NONE 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 AND MATERIAL CUTTER/Reproductive: NONE Past Surgical History Surgical History: none Psychosocial History Strengths/Capabilities: supportive family which has gone through substance treatment seeking, in agreement with treatment plan (signed in voluntarily), supportive family however with conflict over his drinking Physical Limitations (Interventions): none Psychiatric Treatment History Psych Treatment Psychiatric Treatment Yes Outpatient Treatment Yes () Location of Treatment IOP d/c on 03/05/2018 Reason for Treatment EtOH, Depression Response to Treatment relapse Diagnosis: Major depressive disorder, recurrent Alcohol Use Disorder, severe Risk Factors: access to lethal means, high anxiety/distress, history of suicide atmpts, SA/MH hospitalized, substance abuse, poor impulse control, lack of outcome concern, lives alone, male, limited support, SIB Substance Use/Abuse History Drug Use/Abuse Substances Used/Abused Yes (See HPI) Substance Used/Abused Marijuana (See HPI) Substance Abuse Treatment Substance Abuse Treatment Past Substance Abuse TX Yes Inpatient Treatment Yes Outpatient Treatment Yes Location of Treatment [facility] 6 daysa go -> AM, [facility] Reason for Treatment EtOH Dates of Treatment 03/2018 Response to Treatment relapse Assessment/Plan Mental Status Mental Status Exam: GENERAL: Alert and oriented x3, fair eye contact, guarded, seated in hospital bed in hospital gown, appropriate hygiene, no apparent distress SPEECH: Soft and low, normal prosody, fluent MOTOR: No tics, tremors, stereotypy, or abnormal movements MOOD: "Not good" AFFECT: Guarded, calm, mood congruent, constricted range, non-labile, reasonably well related THOUGHT PROCESS: Logical, linear and goal-directed THOUGHT CONTENT: No SI/HI/AVH/+SIB (cutting), no apparent grandiosity, paranoia , delusions, obsessions, ruminations (but collateral report he has been very sullen, remorse, suicidal) COGNITION: No apparent deficit in attention, memory or concentration JUDGMENT: Poor-fair (able to maintain behavioral control while in hospital) INSIGHT: Poor (minimizing extent of depression and drinking) Lab Results: Laboratory Tests 03/17/18 0604: Anion Gap 10, Estimated GFR > 60, BUN/Creatinine Ratio 15.0, Phosphorus 4.6 H, Magnesium 1.8 Vital Signs Date Time Temp Pulse Resp B/P B/P Pulse O2 O2 Flow FiO2 Mean Ox Delivery Rate 03/18 1443 99.1 75 18 122/74 99 Room Air 03/18 0559 98.8 63 18 102/58 97 Room Air 03/17 2255 99.0 68 18 118/74 96 Room Air Diffential Diagnosis: Major depressive disorder, recurrent; substance induced mood disorder; alcohol use disorder, severe Impression: 27-year-old single white male, recently had engagement broken off, with history of depression and alcohol use disorder, severe, [facility] and immediately relapsing on alcohol with worsening suicidal and self-injurious behavior, presenting with ex-fianc ED 2 days ago for alcohol detox. However since admission, it has come to the attention of medical staff the patient may have been suicidal, and likely took an unknown quantity of gabapentin and attempted to jump out of a moving car going 40-50 miles an hour on the [facility]. At this time, patient is calm, undergoing alcohol withdrawal (tapered down to 1.5 mg Ativan every 6 hours standing per medicine today) with minimal symptoms currently, but minimizing the degree of potential self-harm and denying SI currently, however does appear to be guarded and not forthcoming. Collateral is quite concerning from both mother and patient's ex-fianc, who have stated patient has been cutting himself, threatening to drive off a bridge, attempting to exit a moving vehicle and taking previously unreported attempted overdose on gabapentin. Patient is in agreement with voluntary psychiatric inpatient admission for maintenance of safety, psychiatric stabilization, pharmacologic management to include management of withdrawal and aftercare planning. -Admit voluntarily to CPS when bed available and medically cleared, voluntary form signed and in patient's chart -Continue one-to-one safety monitor and monitor for elopement risk, may not leave AMA -VS/CIWA q4h with ativan 2 mg prn CIWA >8 or SBP >160 or DBP >100 or HR >100 -would dc standing ativan and move to CIWA-driven protocol -cont sertraline, gabapentin, trazodone, MVI, folate, thiamine as you are doing -would restart naltrexone if pt in agreement -encourage oral hydration -Mother states she'll remove guns from the home and store them in a locked safe with a friend Please call Psychaitry Consult/Liaison () or on-duty Psychiatrist ( nights/weekends) with questions.
[2018-03-18 14:43] VITALS: BP 122/74
--- NOTE | 2018-03-18 14:52 | Discharge Summary ---
Visit Information Visit Dates Admission Date: 03/16/18 Discharge Date: 03/18/2018 Hospital Course Course Attending Physician: Mani RAMOS,Marshall Bryant Primary Care Physician: Patient Has No Primary Care Dr Hospital Course: Mr. Trujillo is a 27 yr old gentleman with PMH significant for anxiety, depression and alcohol abuse, recent admission to [facility] for suicidal ideation, presents for alcohol detox. Patient has been drinking hard liquor for the past 6 years. Says he has been trying to limit his drinking and was in a detox program in [place] 10 days ago, but left AMA and started drinking again. He drinks 10-15 shots per day and his last drink was on the morning of presentation to the ER. Patient has no suicidal ideation on interview at admission. Vitals on admission were stable. Labs were significant for sodium of 148, anion gap 108 and creatinine 1.3. Serum alcohol Level was 378. U tox was negative, LFTs were normal, calcium normal, lipase normal Probelm List 1. Alcohol detox 2. Anion gap; Likely 2/2 to alcohol use: Closed on last blood draw 3. Hx of Anxiety, and Depression 4. BENNETT: Resolved today with decrease of creatinine from 1.3-0.8 5. Hypernatremia: Resolved with decrease in sodium from 148-140 Alcohol detox Patient was admitted to general medicine floor but held in telemetry. Monitor vitals every shift. Patient was kept on Ativan per CIWA and also on standing doses of Ativan 2 mg every 6 and decreased it to 1.5 mg every 6 hours. He was given multivitamin, thiamine, folate. Electrolytes were within normal limits and anion gap was closed. Patient also received Zofran as needed for nausea. Patient was evaluated by psychiatrist this morning. Standing doses of Ativan was discontinued. Patient was started on 2 mg every 4 hours as needed Ativan. Also patient agreed to be transferred to Inpatient Psychiatry when bed available. Smoking history patient was given nicotine patch 14 mg daily Anxiety and depression Patient was continued on gabapentin, Zoloft, trazodone Acute kidney injury Creatinine improved from 1.3 - 0.8. Hypernatremia Sodium 148 at the time of admission, improved up to 140. DVT prophylaxis alps and subcu Lovenox Patient is full code Allergies: Coded Allergies: No Known Allergies (12/28/17) Disposition Summary Disposition Principal Diagnosis: Alcohol detox Additional Diagnosis: Acute kidney injury Discharge Disposition: other general hospital Discharge Instructions General Discharge Information Code Status: Full Code Patient's Diet: As tolerated Patient's Activity: As tolerated Follow-Up Instructions/Appts: Follow-up with PCP in 1 week after discharge Follow-up with psychiatrist in 1 week after discharge Medications at Discharge Discharge Medications: Continue taking these medications: Sertraline HCl (Zoloft) 100 MG TABLET 1 Tablet ORAL DAILY Gabapentin (Gabapentin) 400 MG CAPSULE 1 Capsule ORAL TWICE DAILY Trazodone HCl (Trazodone HCl) 50 MG TABLET 1 Tablet ORAL Every night as needed for SLEEP Start taking the following new medications: Folic Acid (Folic Acid) 1 MG TABLET 1 Milligram ORAL DAILY Qty = 30 No Refills Thiamine HCl (Vitamin B-1) 100 MG TABLET 100 Milligram ORAL DAILY Qty = 30 No Refills Multivitamin (One Daily Multivitamin) 1 EACH TABLET 1 Tablet ORAL DAILY Qty = 30 No Refills Lorazepam (Ativan) 2 MG TABLET 2 Milligram ORAL EVERY 4 HOURS NEEDED as needed for ALCOHOL DETOX Qty = 1 No Refills Instructions: GIVE ACCORDING TO CIWA SCORING, FOR CIWA>8, SBP>160, DBP >100, HR>100 Copies To: Oseas RAMOS,Oseas
--- NOTE | 2018-03-18 14:53 | Patient Discharge Instructions ---
Discharge Instructions General Discharge Information You were seen/treated for: alcohol detox Special Instructions: 1. FOLLOW UP WITH PCP IN ONE WEEK 2. FOLLOW UP WITH PSYCHIATRY IN ONE WEEK Diet Continue normal diet: Yes Activity Full Activity/No Limits: Yes Acute Coronary Syndrome Inclusion Criteria At DC or during hospital stay patient has or had the following: ACS DIAGNOSIS No Discharge Core Measures Meds if any: Prescribed or Continued at Discharge Meds if any: NOT Prescribed or Continued at Discharge Congestive Heart Failure Inclusion Criteria At DC or during hospital stay patient has or had the following: CHF DIAGNOSIS No Discharge Core Measures Meds if any: Prescribed or Continued at Discharge Meds if any: NOT Prescribed or Continued at Discharge Cerebrovascular accident Inclusion Criteria At DC or during hospital stay patient has or had the following: CVA/TIA Diagnosis No Discharge Core Measures Meds if any: Prescribed or Continued at Discharge Meds if any: NOT Prescribed or Continued at Discharge Venous thromboembolism Inclusion Criteria VTE Diagnosis No VTE Type NONE VTE Confirmed by (Test) NONE Discharge Core Measures - Per Current guidelines, there needs to be overlap - treatment for the first 5 days of Warfarin therapy. - If discharged on Warfarin prior to 5 days of - overlap therapy, the patient will need to be - assessed for post discharge needs including - *Post discharge parental anticoagulation - *Warfarin and/or parental anticoagulation education - *Follow up date to check INR post discharge At least 5 days overlap therapy as Inpatient No Meds if any: Prescribed or Continued at Discharge Note: Overlap Therapy is Warfarin and Anticoagulant Meds if any: NOT Prescribed or Continued at Discharge
[2018-03-18] MEDS ORDERED: ONE DAILY MULT1 EAC2 PO (17:04)
[2018-03-18] MEDS ORDERED: VITAMIN B-1100 MG PO (17:04)
[2018-03-18] MEDS ORDERED: ATIVAN2 MG PO (17:04)
[2018-03-18] MEDS ORDERED: FOLIC ACID1 M1 PO (17:04)
== END 2018-03-18 18:25 | DRG 775 ==
LOC: ERH 17:48 → ERHI 19:17 → 1NO 03-16 22:08 → EDBEDREQ 03-16 22:40 → EDBEDREQDT 03-16 22:40 → EDBEDREQTM 03-16 22:40 → 1NO 03-17 00:15
PROVIDERS: Physician Assistant
DX: F10.229 Alcohol dependence with intoxication, unspecified (principal); Y90.8 Blood alcohol level of 240 mg/100 ml or more; Z91.5 Personal history of self-harm; F32.9 Major depressive disorder, single episode, unspecified; F17.210 Nicotine dependence, cigarettes, uncomplicated; F41.9 Anxiety disorder, unspecified; Z91.14 Patient's other noncompliance with medication regimen; E87.1 Hypo-osmolality and hyponatremia; N17.9 Acute kidney failure, unspecified
CPT/HCPCS: 1NP; ERO; 36592; 80307; 82436; 96361; 96365; 96375; G0480; J1644; J2405; J2550; J3101; J3490

== ENCOUNTER 2018-03-18 15:33 | Inpatient (IN) | payer OTHER ==
[~2018-03-18] VITALS: Ht 188 cm; Wt 75.9 kg
[~2018-03-18 15:33] MED LIST changes: +GABAPENTIN400 M2 PO; +ZOLOFT100 M1 PO
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
[2018-03-18] MEDS ORDERED: VITAMIN B-1100 MG PO (17:04)
[2018-03-18] MEDS ORDERED: ATIVAN2 MG PO (17:04)
[2018-03-18] MEDS ORDERED: ONE DAILY MULT1 EAC2 PO (17:04)
[2018-03-18] MEDS ORDERED: FOLIC ACID1 M1 PO (17:04)
[2018-03-18 18:57] VITALS: BP 112/75
[2018-03-18 18:58] VITALS: BP 112/75
[2018-03-18 19:35] VITALS: BP 112/75
--- NOTE | 2018-03-18 21:55 | PN- Att Addend ---
Attending Addendum Attending Brief Note 27M PMH EtOH abuse, was discharged from detox facility 10 days prior to admission with relapse, last drink 3 hours prior to coming to ED, was evaluated in ED and began to show withdrawal signs, CIWA 15, dehydration and BENNETT secondary to vomiting and poor PO intake, no signs of sepsis or pancreatitis. Treated with Ativan taper and IV fluids, renal function normalized. CIWA scores remained low, 0-4 on day of discharge. Expressed thoughts of self-harm and depression to psychiatry, admitted to [facility] for further management. Will defer to psychiatry for management, re-consult medicine as necessary.
[2018-03-19] VITALS (7 sets, daily range): BP systolic 101–137; BP diastolic 59–78
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
[2018-03-20] VITALS (8 sets, daily range): BP systolic 99–130; BP diastolic 61–79
--- NOTE | 2018-03-20 11:12 | CP SOUTH PROGRESS NOTE PSYCH ---
Psych (Inpt) Progress Note Progress Note Include the following elements, when applicable: Involvement in the active treatment of the patient with behavioral observations of the patient and the patient's response to the treatment. Review of the ongoing treatment process in the context of the treatment plan. Indication of how multi-disciplinary staff members are carrying out the treatment plan. Plans for future interventions and recommendations for revision of the treatment plan. Liaison with other physicians/providers. Progress Note: Pt notes that his mood is "OK". He notes that his fiance is going to visit today. His parents may visit and finds that they are all supportive. Denies SI or HI. Noted poor sleep last night for the first time, did not want any intervention. Current Medications Sig/Elzbieta Start time Last Medication Dose Route Stop Time Status Admin Benztropine Mesylate 1 MG Q6P PRN 03/18 1615 AC PO Benztropine Mesylate 1 MG Q6P PRN 03/18 1615 AC IM Folic Acid 1 MG DAILY 03/19 0900 AC 03/20 PO 0837 Gabapentin 400 MG Q4 HRS NEEDED PRN 03/19 1130 AC PO Gabapentin 400 MG BID 03/18 2100 AC 03/20 PO 0837 Haloperidol 5 MG Q6P PRN 03/18 1615 AC PO Haloperidol 5 MG Q6P PRN 03/18 1615 AC IM Lorazepam 2 MG Q6P PRN 03/18 1615 AC PO Lorazepam 2 MG Q6P PRN 03/18 1615 AC IM Lorazepam 2 MG Q4P PRN 03/18 1615 AC PO Multivitamins 1 TAB DAILY 03/19 09 AC 03/20 PO 0837 Nicotine 21 MG DAILY 03/18 1621 AC 03/19 TOP 0830 Sertraline HCl 100 MG DAILY 03/19 0900 AC 03/20 PO 0837 Trazodone HCl 50 MG AT BEDTIME NEED.. 03/18 1630 AC 03/20 PO 0018 Laboratory Tests 03/19 605 Chemistry Hemoglobin A1c (4.2 - 5.8 %) 4.8 Vital Signs Date Time Temp Pulse Resp B/P B/P Pulse O2 O2 Flow FiO2 Mean Ox Delivery Rate 03/20 928 97.9 79 99/61 03/20 0855 97.9 79 99/61 03/19 2032 99.1 63 137/78 03/19 1605 66 119/71 03/19 1543 66 119/71 03/19 1214 63 112/70 03/19 1210 63 / MSE Appearance: as stated age Speech : nl rate, rhythm, volume and prosody Behavior: cooperative Motor: no psychomotor agitation or retardation Mood : OK Affect : flat, non-labile, anxious, irritable, appropriate, constricted Thought process: linear and goal directed Thought content : no delusions or paranoia Perceptions: denied AVHs, denied SI or HI Insight: poor Judgment: poor A/P: Pt with MDD, AUD, and SI now with improved mood. Tolerating detox w/o difficulty. Continue current medication regimen Encourage integration into the milieu
[2018-03-21] VITALS (7 sets, daily range): BP systolic 112–133; BP diastolic 70–77
--- NOTE | 2018-03-21 11:16 | CP SOUTH PROGRESS NOTE PSYCH ---
Psych (Inpt) Progress Note Progress Note Include the following elements, when applicable: Involvement in the active treatment of the patient with behavioral observations of the patient and the patient's response to the treatment. Review of the ongoing treatment process in the context of the treatment plan. Indication of how multi-disciplinary staff members are carrying out the treatment plan. Plans for future interventions and recommendations for revision of the treatment plan. Liaison with other physicians/providers. Progress Note: Pt notes that he is "good" today. Had poor sleep overnight. Denies SI or HI. Current Medications Sig/Elzbieta Start time Last Medication Dose Route Stop Time Status Admin Benztropine Mesylate 1 MG Q6P PRN 03/18 1615 AC PO Benztropine Mesylate 1 MG Q6P PRN 03/18 1615 AC IM Folic Acid 1 MG DAILY 03/19 09 AC 03/21 PO 0852 Gabapentin 400 MG Q4 HRS NEEDED PRN 03/19 1130 AC 03/20 PO 1932 Gabapentin 400 MG BID 03/18 2100 AC 03/21 PO 0852 Haloperidol 5 MG Q6P PRN 03/18 1615 AC PO Haloperidol 5 MG Q6P PRN 03/18 1615 AC IM Lorazepam 2 MG Q6P PRN 03/18 1615 AC PO Lorazepam 2 MG Q6P PRN 03/18 1615 AC IM Lorazepam 2 MG Q4P PRN 03/18 1615 AC PO Multivitamins 1 TAB DAILY 03/19 0900 AC 03/21 PO 0852 Nicotine 21 MG DAILY 03/18 1621 AC 03/21 TOP 1106 Sertraline HCl 100 MG DAILY 03/19 09 AC 03/21 PO 0852 Trazodone HCl 50 MG AT BEDTIME NEED.. 03/18 1630 AC 03/20 PO 0018 Laboratory Tests 03/19 06 Chemistry Hemoglobin A1c (4.2 - 5.8 %) 4.8 Vital Signs Date Time Temp Pulse Resp B/P B/P Pulse O2 O2 Flow FiO2 Mean Ox Delivery Rate 03/21 0838 95.1 64 112/75 03/21 0838 95.1 64 11275 03/20 2001 98.3 66 130/79 03/20 1957 98.3 66 130/79 03/20 1607 67 130/77 03/20 1602 67 130/77 03/20 1235 82 112/70 03/20 1230 82 112/70 MSE Appearance: as stated age Speech : nl rate, rhythm, volume and prosody Behavior: cooperative Motor: no psychomotor agitation or retardation Mood : OK, tired Affect : flat, non-labile, anxious, irritable, appropriate, constricted Thought process: linear and goal directed Thought content : no delusions or paranoia Perceptions: denied AVHs, denied SI or HI Insight: poor Judgment: poor A/P: Pt with MDD, AUD, and SI now with improved mood. Tolerating detox w/o difficulty. Continue current medication regimen, encouraged pt to take the trazodone eariler in the evening Encourage integration into the milieu
[2018-03-22 07:43] VITALS: BP 100/63
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
[2018-03-22 12:28] VITALS: BP 116/72
--- NOTE | 2018-03-22 14:23 | SOCIAL WORKER PROG NOTE PSYCH ---
Social Work Progress Note Progress Note Amauri approached me this morning to tell me he didn't think a meeting was necessary with his family because they are only going to advocate that he stay longer. I told him that I thought a meeting would be helpful, so we could communicate openly about next steps. At 1pm Amauri's Father and Mother came in. Hector talked about how the unit here has been stressful. Emphathized, but redirected the focus to him. He shared his thoughts about how he is anxious to return to work and how he feels that would help him maintain his sobriety. Mother challenged him on this and stated it hadn't been helping him before so what's changed. Both parents feel he could benefit from more time in a program before returning to work. They are not open to having him come to one of their homes right now. I explained that Amauri is beginning not to meet inpatient criteria at this point and we would need to figure out where he can stay. Mom reports she is in contact with [employer] in the [place] area and is working on him possibly staying at [facility] for a week. Amauri would be willing to do that for a week, but not beyond that due to work. She will let me know in the next day if that is a possibility. The other option may be [facility]. Amauri is an agreement to do a referral. He is also interested in applying for Sober Housing at [facility] in [place]. His plan is still to do [facility] and attend AA.
[2018-03-22 15:51] VITALS: BP 128/73
--- NOTE | 2018-03-22 17:05 | SOCIAL WORKER PROG NOTE PSYCH ---
Social Work Progress Note Progress Note Determination Status: PENDED The services requested require additional review. You will be contacted regarding the status of this request if further information is needed. An authorization decision will be made within the required timeframes and details of that decision may be found under the member's authorization history. Member Name Member ID Member Subscriber Name Subscriber ID PAIGE AMBROSIO [id number] 1990 PAIGE AMBROSIO [id number] Pended Authorization # Client Authorization # Type of Request [id number] CONCURRENT Date of Admission/ Start of Services Requested From Submission Date 03/18/2018 03/22/2018 03/22/2018 Level of Service Type of Service Level of Care Type of Care INPATIENT/HLOC Mental Health Inpatient Inpatient Hospital - Inpatient Hospital Reason Code P76 Provider Name & Address Provider ID Provider Alternate ID NPI # for Authorization NAZIA HARPER [id number] N/A [address] [facility] [id number] Message P76 Attached Documents There are no documents attached with this Authorization Request Document Title Document Description Authorization Printing & Downloading Options: (For the best print results, please print in 'Landscape' format) Print the Results page (this page) Print the entire Authorization Request Download the entire Authorization Request Return to the [employer] homepage
[2018-03-22 20:15] VITALS: BP 1115/78; BP 115/78
[2018-03-23 09:22] VITALS: BP 105/55
[2018-03-23 12:11] VITALS: BP 130/62
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
--- NOTE | 2018-03-23 13:51 | SOCIAL WORKER PROG NOTE PSYCH ---
Social Work Progress Note Progress Note Faxed Crisis [facility] Referrals to the [facility] and [place] programs. [facility]'s clinical telephonic case manager stated there may be an opening tomorrow. Amauri appears calm and has remained positive on the unit, despite some peers that were causing trouble on the unit this morning. He shared that he is trying to remain in good spirits and is accepting that he is here. We talked about planning d/c for tomorrow. We discussed his options as to where he may go tomorrow. Amauri stated if he can't get in a Sober House or [facility] by tomorrow his Father would take him in for a few days. We will plan for a 1:15 intake at [facility]. His Father will most likely pick him up tomorrow. Amauri talked about the frustration/ anger he has within himself regarding his drinking and how it is setting him back. He feels overwhelmed by the amount of work he knows he has ahead of him. Talked about focusing on the present and making good choices in the moment. Scheduled an [facility] intake for 1:15 tomorrow.
[2018-03-23 16:04] VITALS: BP 129/81
[2018-03-23 20:10] VITALS: BP 135/75
[2018-03-24 08:08] VITALS: BP 107/68
[2018-03-24] MEDS ORDERED: NALTREXONE HCL50 M1 PO (08:15)
[2018-03-24] MEDS ORDERED: GABAPENTIN400 M2 PO (08:15)
[2018-03-24] MEDS ORDERED: NICOTINE PATCH1 EAC3 TOP (08:15)
[2018-03-24] MEDS ORDERED: ZOLOFT100 M1 PO (08:15)
[2018-03-24] MEDS ORDERED: ONE DAILY MULT1 EAC2 PO (08:15)
[2018-03-24] MEDS ORDERED: TRAZODONE HCL50 M1 PO (08:15)
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
--- NOTE | 2018-03-24 09:06 | SOCIAL WORKER PROG NOTE PSYCH ---
Social Work Progress Note Progress Note Called [facility] in [place]. Spoke with Shaylee who was able to screen Amauri. Amauri couldn't remember the name of the Sober House in [place]. Shaylee stated she would need that information to verify he is on the list to go there. I called Amauri's Mother to get the information but she didn't answer. Amauri was informed that [facility] would accept him to their program if he could give them the name of the program. He took the information and said he will keep their number and follow up with them if needed. He thinks he will be able to stay with Dad for a few days and then go straight to the Sober House. IOP intake scheduled for 1:15pm today. Mood was stable and ready to go. Dad was picking him up after intake today.
[2018-03-24 12:33] VITALS: BP 128/80
== END 2018-03-24 13:14 | DRG 754 ==
LOC: CP SOUTH 15:33 → 1NO 18:29 → CP SOUTH 18:29
DX: F32.9 Major depressive disorder, single episode, unspecified (principal); F10.10 Alcohol abuse, uncomplicated
CPT/HCPCS: 36415; 90832; J0515; J1630; J3490

== ENCOUNTER 2018-05-26 03:36 | Inpatient (IN) | payer OTHER ==
[~2018-05-26] VITALS: Ht 188 cm; Wt 74.9 kg
[2018-05-26] VITALS (9 sets, daily range): BP systolic 105–136; BP diastolic 52–85
[~2018-05-26 03:36] MED LIST changes: +ATIVAN2 MG PO; +FOLIC ACID1 M1 PO; +NALTREXONE HCL50 M1 PO; +NICOTINE PATCH1 EAC3 TOP; +ONE DAILY MULT1 EAC2 PO; +VITAMIN B-1100 MG PO
--- NOTE | 2018-05-26 04:52 | ED PSYCHIATRIC COMPLAINT ---
See Addendum History of Present Illness General Chief Complaint: ETOH/Drug Related Complaint Stated Complaint: ALCOHOL ABUSE +SI PER PT Source: patient, friend Exam Limitations: clinical condition Vital Signs & Intake/Output Vital Signs & Intake/Output Vital Signs Date Time Temp Pulse Resp B/P B/P Pulse O2 O2 Flow FiO2 Mean Ox Delivery Rate 05/26 1930 98.2 74 18 112/63 05/26 1730 98.2 66 18 116/82 05/26 1616 97.6 65 18 118/62 98 Room Air 05/26 1530 97.6 65 18 118/62 05/26 1330 98.2 68 18 105/52 05/26 1151 97.9 84 18 110/71 98 05/26 1130 97.9 84 18 110/71 05/26 0930 97.0 65 18 111/65 05/26 0859 98.0 65 16 112/65 98 05/26 0730 97.0 66 18 110/65 05/26 0701 98.5 72 20 97/64 94 Room Air 05/26 0508 98.2 100 20 118/78 96 Room Air 05/26 0507 96 Room Air Allergies Coded Allergies: No Known Allergies (12/28/17) Triage Nurses Notes Reviewed? yes Onset: Gradual Duration: week(s):, waxing and waning Timing: recent history Severity: moderate Associated Symptoms: anxiety, suicidal ideation HPI: 27 yo gentleman presents seeking alcohol detox, also with suicidal ideation. Per his girlfriend, he drinks 1 pint of vodka per day. He has ideation regarding slitting his wrists. Upon arrival, he was belligerent, but able to be redirected verbally. He did wish to disclose details. It is unknown if he has had seizures. (Seth RAMOS,Benjamin Krishna) Reconcile Medications Gabapentin 400 MG CAPSULE 1 CAP PO BID ANXIETY Naltrexone HCl 50 MG TABLET 50 MG PO 0800 alcohol Sertraline HCl (Zoloft) 100 MG TABLET 1 TAB PO DAILY MENTAL HEALTH Trazodone HCl 50 MG TABLET 1 TAB PO QPM PRN SLEEP (Reported) (Celso RAMOS,Jeremias) Past History Travel History Traveled to [place] past 21 day No Medical History Any Pertinent Medical History? see below for history Neurological: NONE EENT: NONE Cardiovascular: NONE Respiratory: NONE Gastrointestinal: NONE Hepatic: NONE Renal: liver and kidney functions x3 weeks labs signifcant for ETOH use Musculoskeletal: NONE Psychiatric: alcohol dependence, depression Endocrine: NONE Blood Disorders: NONE Cancer(s): NONE BIOLOGICAL PLANT OPERATOR/Reproductive: NONE History of MRSA: No History of VRE: No History of CDIFF: No Surgical History Surgical History: N Psychosocial History Who do you live with Other (see notes) What is your primary language Uzbek Family History Hx Contributory? No (Seth RAMOS,Benjamin Krishna) Review of Systems Review of Systems Constitutional: Reports: no symptoms. EENTM: Reports: no symptoms. Respiratory: Reports: no symptoms. Cardiovascular: Reports: no symptoms. GI: Reports: no symptoms. Genitourinary: Reports: no symptoms. Musculoskeletal: Reports: no symptoms. Skin: Reports: no symptoms. Neurological/Psychological: Reports: no symptoms. Hematologic/Endocrine: Reports: no symptoms. Immunologic/Allergic: Reports: no symptoms. All Other Systems: Reviewed and Negative (Seth RAMOS,Benjamin Krishna) Physical Exam Physical Exam General Appearance: well developed/nourished, mild distress Head: atraumatic Eyes: Bilateral: PERRL, EOMI. Ears, Nose, Throat: normal pharynx, normal ENT inspection Neck: normal inspection, supple, full range of motion Respiratory: normal breath sounds, chest non-tender, no respiratory distress, quiet respiration, lungs clear Cardiovascular: regular rate/rhythm Gastrointestinal: normal bowel sounds Neurological/Psychiatric: no motor/sensory deficits, awake, agitated, belligerent, aggressive, but able to be redirected verbally Appearance/Memory/Insight: impaired insight Behavoir/Eye Contact/Speech: belligerent, uncooperative Thoughts/Hallucinations: no apparent hallucination Skin: intact, normal color, warm/dry SAD PERSONS SAD PERSONS Response Value Male Sex? yes 1 Depression/Hopelessness? yes 2 Excessive Ethanol/Drug Use? yes 1 Rational Thinking Loss? yes 2 Social Support? has support 0 Total 6 SAD PERSONS Done? yes (Seth RAMOS,Benjamin Krishna) Progress Differential Diagnosis: drug intoxication, bipolar vs alcohol abuse disorder vs other. Plan of Care: Orders Procedure Date/time Status Regular Diet 05/27 B Active CIWA 05/26 925 Active Continuous Observation Monitor 05/26 453 Active URINE DRUG SCREEN FOR ER ONLY 05/26 453 Complete ETHANOL 05/26 453 Complete COMPREHENSIVE METABOLIC PANEL 05/26 453 Complete CBC WITHOUT DIFFERENTIAL 05/26 453 Complete ED CRISIS PSYCH CONSULT 05/26 453 Active CASE MANAGEMENT CONSULT 05/26 453 Active Laboratory Tests 05/26/18 0518: Anion Gap 12, Estimated GFR > 60, BUN/Creatinine Ratio 13.0, Glucose 100 H, Calcium 9.0, Total Bilirubin 0.2, AST 41, ALT 67, Alkaline Phosphatase 48, Total Protein 6.7, Albumin 4.1, Globulin 2.6, Albumin/Globulin Ratio 1.6, CBC w Diff NO MAN DIFF REQ, RBC 4.73, MCV 95.9 H, MCH 32.3 H, MCHC 33.7, RDW 13.6, MPV 6.4 L, Gran % 44.5, Lymphocytes % 42.2, Monocytes % 11.0 H, Eosinophils % 1.6, Basophils % 0.7, Absolute Granulocytes 2.8, Absolute Lymphocytes 2.6, Absolute Monocytes 0.7 H, Absolute Eosinophils 0.1, Absolute Basophils 0, Serum Alcohol 358.0 05/26/18 0510: Urine Opiates Screen < 100, Methadone Screen < 40, Barbiturate Screen < 60, Ur Phencyclidine Scrn < 6.00, Amphetamines Screen < 100, U Benzodiazepines Scrn < 85, Urine Cocaine Screen < 50, Urine Cannabis Screen 24.60 (Seth RAMOS,Bnejamin Krishna) Departure Departure Disposition: STILL A PATIENT Condition: Stable Clinical Impression Primary Impression: Alcoholism Secondary Impressions: Depression Referrals: Patient Has No Primary Care Dr (PCP/Family) Departure Forms: Customer Survey General Discharge Information Comments pt to be signed out to dr. mueller 05/26/18, 7am. crises team to evaluate. (Seth RAMOS,Benjamin Krishna) PA/SUPERINTENDENT GREENS Co-Sign Statement Statement: ED Attending supervision documentation- x I saw and evaluated the patient. I have also reviewed all the pertinent lab results and diagnostic results. I agree with the findings and the plan of care as documented in the PA's/SUPERINTENDENT GREENS's documentation. [] I have reviewed the ED Record and agree with the PA's/SUPERINTENDENT GREENS's documentation. [] Additions or exceptions (if any) to the PAs/SUPERINTENDENT GREENS's note and plan are summarized below: [] (Celso RAMOS,Jeremias)
[2018-05-26 05:34] LABS: ABSOLUTE BASOPHIL COUNT 0 /CUMM (0.0-0.2); ABSOLUTE EOSINOPHIL COUNT 0.1 /CUMM (0.0-0.7); ABSOLUTE GRANULOCYTE CT 2.8 /CUMM (1.4-6.5); ABSOLUTE LYMPH COUNT 2.6 /CUMM (1.2-3.4); ABSOLUTE MONOCYTE COUNT 0.7 /CUMM (0.10-0.60); BASOPHIL % 0.7 % (0.0-2.0); EOSINOPHIL % 1.6 % (0-5); GRANULOCYTE % 44.5 % (42.2-75.2); HEMATOCRIT 45.3 % (42-52); MEAN CORPUSCULAR HGB 32.3 PG (27.0-31.0); MEAN CORPUSCULAR HGB CONC 33.7 G/DL (33.0-37.0); MEAN CORPUSCULAR VOLUME 95.9 FL (80.0-94.0); MEAN PLATELET VOLUME 6.4 FL (7.4-10.4); PLATELET COUNT 264 /CUMM (130-400); RBC DISTRIBUTION WIDTH 13.6 % (11.5-14.5); RED BLOOD CELL CT 4.73 /CUMM (4.70-6.10); WHITE BLOOD CELL COUNT 6.2 /CUMM (4.8-10.8)
[2018-05-26] MEDS ORDERED: TRAZODONE HCL50 M1 PO (12:28)
--- NOTE | 2018-05-26 20:53 | ED PSYCH CRISIS CONSULTATION ---
Crisis Consult Basic Assessment Date of Consult: 05/26/18 Responsible Person/Accompanied By: Brought in by girlfriend Insurance Authorization: Insurance #1: Insurance name: INA REDMOND Policy number: [id number] ED Provider: Patient's ED Provider: Seth RAMOS,Benjamin Krishna Primary Care Physician: Patient's PCP: Patient Has No Primary Care Dr PCP's Phone Number: Current Psychiatrist: No current psychiatrist Chief Complaint: ETOH/Drug Related Complaint Patient's Quote: "Drink way too much....making suicidal statements" Present Illness: Patient is a 27 year old male who presents with increasing depression , suicidal ideation, and severe alcohol abuse. Patient's blood alcohol on arrival earlier this morning was 358. Patient admits to drinking almost an entire bottle of 100 proof hard alcohol. Patient asserts he drinks heavily almost daily. Patient is currently in outpatient psychotherapy with SHADY Laura a licensed alcohol / drug counselor. Patient was discharged from [facility]' s intensive outpatient program as he needed a higher level of care. Patient has been attempting to admit to a rehabilitation program but reports being unsucessful. He indicates he is on a waitlist for [facility] program. Patient has also been calling [place] daily. Patient reports he has been suicidal when he is intoxicated. Patient admits to self - injurious behavior as well by cutting in the past two weeks. Patient reports he was admitted inpatient at [facility] for psychiatry in the past month for mental health. Patient's zach Matute states "He hasnt been doing well at all...drinking a lot...he is not able to stay sober....his depression has been really bad...he threatens to hurt himself....says "I'll slit my wrists" or "I'll be done by the time you get here"....he's not safe." Zach also reports patient makes aggressive comments towards other when he is intoxicated. Zach reports patient has been staying with his mother but also has spent a night in his car and also checked in to a hotel room due to conflict with mother. Zach is concerned about patient's self injurious behavior as he has a history of cutting. Patient presents alert, oriented, with flat affect, depressed mood. Patient denies symptoms of psychosis and there is no indication of hallucinations, delusions, or paranoia. Patient denies any other substance use other than alcohol - his urine toxicology screening is negative for all substances. Patient denies medical concerns and was medically cleared by attending ED physician Dr. Ann. Patient reports being prescribed psychotropic medications Gabapentin and Zoloft which he asserts are helpful in managing his symptoms of depression / anxiety. Patient denies current suicidal ideation, intent or plan but admits to recent suicidal ideation. Patient admits this most often occurs while he is intoxicated but this is a concern as patient has been drinking almost daily and has history of suicidality and a history of self-injurious behavior. Patient is receptive to an admission for inpatient psychiatry on a voluntary basis. Crisis evaluation reviewed with on-call psychiatrist Dr. Miguel who is also in agreement with inpatient admission. Patient's Address: [address] [place] [address] Other Phone Number: Who Do You Live With? Other (see notes) Family/Informants Interviewed: Adrián Rich Marxca Ginny Allergies - Coded Allergies: No Known Allergies (12/28/17) Current Medications - Scheduled Medications Gabapentin 400 MG CAPSULE 1 CAP PO BID ANXIETY #30 CAP Prescribed by Dung Miguel MD on 03/24/18 Naltrexone HCl 50 MG TABLET 50 MG PO 0800 alcohol #14 TAB Prescribed by Dung Miguel MD on 03/24/18 Sertraline HCl (Zoloft) 100 MG TABLET 1 TAB PO DAILY MENTAL HEALTH #30 TAB Prescribed by Dung Miguel MD on 03/24/18 Scheduled PRN Medications Trazodone HCl 50 MG TABLET 1 TAB PO QPM PRN SLEEP (Reported) Entered as Reported by Erich Vilchis on 05/26/18 1228 Laboratory Results: Laboratory Tests 05/26/18 0518: Anion Gap 12, Estimated GFR > 60, BUN/Creatinine Ratio 13.0, Glucose 100 H, Calcium 9.0, Total Bilirubin 0.2, AST 41, ALT 67, Alkaline Phosphatase 48, Total Protein 6.7, Albumin 4.1, Globulin 2.6, Albumin/Globulin Ratio 1.6, CBC w Diff NO MAN DIFF REQ, RBC 4.73, MCV 95.9 H, MCH 32.3 H, MCHC 33.7, RDW 13.6, MPV 6.4 L, Gran % 44.5, Lymphocytes % 42.2, Monocytes % 11.0 H, Eosinophils % 1.6, Basophils % 0.7, Absolute Granulocytes 2.8, Absolute Lymphocytes 2.6, Absolute Monocytes 0.7 H, Absolute Eosinophils 0.1, Absolute Basophils 0, Serum Alcohol 358.0 05/26/18 0510: Urine Opiates Screen < 100, Methadone Screen < 40, Barbiturate Screen < 60, Ur Phencyclidine Scrn < 6.00, Amphetamines Screen < 100, U Benzodiazepines Scrn < 85, Urine Cocaine Screen < 50, Urine Cannabis Screen 24.60 Past History Past Medical History Neurological: NONE EENT: NONE Cardiovascular: NONE Respiratory: NONE Gastrointestinal: NONE Hepatic: NONE Renal: liver and kidney functions x3 weeks labs signifcant for ETOH use Musculoskeletal: NONE Psychiatric: alcohol dependence, depression Endocrine: NONE Blood Disorders: NONE Cancer(s): NONE 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 Past Surgical History Surgical History: none Psychosocial History Strengths/Capabilities: supportive family which has gone through substance treatment seeking, in agreement with treatment plan (signed in voluntarily), supportive family however with conflict over his drinking Physical Limitations (Interventions): none Psychiatric Treatment History Psych Treatment Psychiatric Treatment Yes Inpatient Treatment Yes Outpatient Treatment Yes Location of Treatment [facility], [facility] [place] Reason for Treatment Alcohol use disorder Depressive disorder Dates of Treatment 2016 to present Response to Treatment Varied - patient has not been able to sustain sobriety in the past year. Diagnosis by History: Major depressive disorder, recurrent Alcohol Use Disorder, severe Substance Use/Abuse History Drug Use/Abuse Substances Used/Abused Yes Substance Used/Abused Alcohol First Use Unknown Last Used Today How much used/taken ~1 pint of 100 proof hard liquor How often Daily For how long Past month Route of use Ingestion Substance Abuse Treatment Substance Abuse Treatment Past Substance Abuse TX Yes Inpatient Treatment Yes Outpatient Treatment Yes Location of Treatment [facility] Reason for Treatment Alcohol use disorder Dates of Treatment 2017-present Response to Treatment Varied - patient has not been able to sustain sobriety Comments: - Current Mental Status Mental Status Orientation: Person, Place, Situation Affect: Depressed, Flat Speech: WNL Neuro-vegetative: Anhedonia, Sleep Disturbance Appearance Appearance- Dress/Hygiene: Patient dressed in hospital. No remarkable features apart from some visible tattoos on arms. Behaviors Thought Process: WNL Thought Content: WNL Memory: WNL Insight: Poor SI/HI Risk Assessment Past Suicidal Ideation/Attempts Yes Current Suicidal Ideation/Att No Past Homicidal Ideation/Att: No Current Homicidal Ideation/Attempts No Degree of Intent: Thoughts/No Intent Danger To: Self Gravely Disabled: Lack of Insight, Poor Impulse Control, Poor Judgment Risk Factors: SA/MH hospitalized, substance abuse, poor impulse control, lives alone, male Lethality Ratin PTSD Checklist PTSD Done? patient declined ED Management Sitter: Yes Restraints: No (Patient is calm & cooperative.) DSM5/PS Stressors/Medical Prob Diagnosis' (DSM 5, Stressors, Medical): F33.1 Major depressive disorder, Recurrent episode, Moderate F10.20 Alcohol use disorder, Severe Current GAF: 25 Departure Disposition Psych Medical Clearance Date: 05/26/18 Medically Cleared at: 2029 Time Started: 2029 Time Ended: 2129 Psychiatrist Consulted: Dr. Dung Miguel MD Date Disposition Established: 05/26/18 Time Disposition Established: 2044 Plan for Disposition - Modality: Inpatient Psychiatry Facility: [facility] Rationale for Disposition: Crisis evaluation reviewed with Dr. Miguel. Patient presents with risk of harm to self based on recent suicidal ideation and impulsive self injurious behavior. This risk is increased when compounded with severe alcohol abuse. Type of IP Admission: Voluntary Referrals Patient Has No Primary Care Dr (PCP/Family)
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
--- NOTE | 2018-05-27 01:33 | History & Physical ---
General Information and HPI MD Statement: I have seen and personally examined PAIGE AMBROSIO and documented this H&P. The patient is a 27 year old M who was admitted for major depression, alcohol intoxication. Source of Information: patient Exam Limitations: no limitations History of Present Illness: Mr. Baugh is 27 years old male with history of major depressive disorder, history of alcohol abuse who was admitted to inpatient psychiatry. Medical consultation is requested for medical management. Patient says that recently his depression and alcohol use became out of control. Patient says he was feeling more depressed so he started drinking more alcohol and it was a cycle. Patient denied any specific symptoms regarding depression or any suicidal intent. Patient has a forehead and anterior chest wall skin rash going on for more than a year. Denied any nausea, vomiting, abdominal pain, diarrhea, chest pain, shortness of breath, palpitations, urinary symptoms. Allergies/Medications Allergies: Coded Allergies: No Known Allergies (12/28/17) Home Med list Gabapentin 400 MG CAPSULE 1 CAP PO BID ANXIETY Naltrexone HCl 50 MG TABLET 50 MG PO 0800 alcohol Sertraline HCl (Zoloft) 100 MG TABLET 1 TAB PO DAILY MENTAL HEALTH Trazodone HCl 50 MG TABLET 1 TAB PO QPM PRN SLEEP (Reported) Compliance With Home Meds: UNKNOWN Past History Travel History Traveled to [place] past 21 day No Medical History Neurological: NONE EENT: NONE Cardiovascular: NONE Respiratory: NONE Gastrointestinal: NONE Hepatic: NONE Musculoskeletal: NONE Psychiatric: alcohol dependence, depression Endocrine: NONE Blood Disorders: NONE Cancer(s): NONE 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 Home ETOH Use: alcoholic Illicit Drug Use: denies illicit drug use Review of Systems Review of Systems Constitutional: Denies: no symptoms, chills, diaphoresis, fever. EENTM: Denies: blurred vision, visual changes, eye pain, eye drainage. Cardiovascular: Denies: chest pain, edema, orthopena. Respiratory: Denies: cough, hemoptysis, short of breath. GI: Denies: abdominal pain, bloating, constipation, diarrhea, distention. Genitourinary: Denies: no symptoms. Musculoskeletal: Denies: no symptoms. Skin: Reports: rash. Neurological/Psychological: Reports: depressed. Denies: anxiety. Hematologic/Endocrine: Denies: bruising, bleeding. Immunologic/Allergic: Denies: see HPI. All Other Systems: Reviewed and Negative Exam & Diagnostic Data Last 24 Hrs of Vital Signs/I&O Vital Signs Date Time Temp Pulse Resp B/P B/P Pulse O2 O2 Flow FiO2 Mean Ox Delivery Rate 05/26 2326 97.2 67 136/85 05/26 2313 97.2 67 136/85 05/26 2117 56 20 121/76 98 05/26 1930 98.2 74 18 112/63 05/26 1730 98.2 66 18 116/82 05/26 1616 97.6 65 18 118/62 98 Room Air 05/26 1530 97.6 65 18 118/62 05/26 1330 98.2 68 18 105/52 05/26 1151 97.9 84 18 110/71 98 05/26 1130 97.9 84 18 110/71 05/26 0930 97.0 65 18 111/65 05/26 0859 98.0 65 16 112/65 98 05/26 0730 97.0 66 18 110/65 05/26 0701 98.5 72 20 97/64 94 Room Air 05/26 0508 98.2 100 20 118/78 96 Room Air 05/26 0507 96 Room Air Intake & Output 05/27 0800 05/27 0000 05/26 1600 Intake Total Output Total Balance Patient 165 lb Weight Physical Exam General Appearance Oriented X3, Cooperative, No Acute Distress Skin erythematous macular skin rash over face and ant chest wall noted HEENT PERRLA, EOMI, Mucous Membr. moist/pink Neck Supple, No JVD, No thryomegaly Lymphatic Axillary nl, Cervical nl Cardiovascular Regular Rate, Normal S1, Normal S2 Lungs Clear to Auscultation, Normal Air Movement Abdomen Normal Bowel Sounds, Soft, No Tenderness, No Hepatospenomegaly Neurological Exam Findings: Normal Gait, Normal Speech, Strength at 5/5 X4 Ext, Normal Tone, Sensation Intact, Cranial Nerves 3-12 NL, Reflexes 2+ Cranial Nerves II through XII: intact Extremities No Clubbing, No Cyanosis, No Edema Vascular Normal Pulses, Pulses Symmetrical Last 24 Hrs of Labs/Irineo: Laboratory Tests 05/26/18 0518: Anion Gap 12, Estimated GFR > 60, BUN/Creatinine Ratio 13.0, Glucose 100 H, Calcium 9.0, Total Bilirubin 0.2, AST 41, ALT 67, Alkaline Phosphatase 48, Total Protein 6.7, Albumin 4.1, Globulin 2.6, Albumin/Globulin Ratio 1.6, CBC w Diff NO MAN DIFF REQ, RBC 4.73, MCV 95.9 H, MCH 32.3 H, MCHC 33.7, RDW 13.6, MPV 6.4 L, Gran % 44.5, Lymphocytes % 42.2, Monocytes % 11.0 H, Eosinophils % 1.6, Basophils % 0.7, Absolute Granulocytes 2.8, Absolute Lymphocytes 2.6, Absolute Monocytes 0.7 H, Absolute Eosinophils 0.1, Absolute Basophils 0, Serum Alcohol 358.0 05/26/18 0510: Urine Opiates Screen < 100, Methadone Screen < 40, Barbiturate Screen < 60, Ur Phencyclidine Scrn < 6.00, Amphetamines Screen < 100, U Benzodiazepines Scrn < 85, Urine Cocaine Screen < 50, Urine Cannabis Screen 24.60 Assessment/Plan Assessment: #Alcohol use disorder, alcohol intoxication, major depressive disorder-per primary team. #Skin rash-patient needs a dermatology evaluation as an outpatient. For now continues topical steroid cream. #Smoking-cessation is advised, ordered nicotine patch. As Ranked By This Provider Problem List: 1. Alcohol dependence 2. Alcoholism 3. Depression 4. Alcohol intoxication 5. Skin rash Miscellaneous Miscellaneous Documentation Attending Case Discussed With: Rox Schaefer MD Primary Care Physician: Patient Has No Primary Care Dr Patient sees these Specialists psychiatry Level of Patient Care: HENRY Adkins Consults Needed: Consulting Physician: none
[2018-05-27 07:46] VITALS: BP 130/67
--- NOTE | 2018-05-27 07:46 | CPS PROVIDER INIT ASMT PSYCH ---
Psychiatric Admission Associate Professor Of Education's Note Reviewed: Yes Patient Seen and Examined: Yes Identifying Information: Patient is a 27 year old male who presents with increasing depression, suicidal ideation, and severe alcohol abuse. Chief Complaint: "Drink way too much....making suicidal statements" Reaction to Hospitalization: The patient was admitted voluntarily History of Present Illness Onset of Illness: About 6 years Circumstances Leading to Admission: According to the notes of Bayron Calvo LCSW (05/26/2018): "27-year old male who presents with increasing depression, suicidal ideation, and severe alcohol abuse. Patient's blood alcohol on arrival earlier this morning was 358. Patient admits to drinking almost an entire bottle of 100 proof hard alcohol. Patient asserts he drinks heavily almost daily. Patient is currently in outpatient psychotherapy with SHADY Laura a licensed alcohol / drug counselor. Patient was discharged from [facility]'s intensive outpatient program as he needed a higher level of care. Patient has been attempting to admit to a rehabilitation program but reports being unsucessful. He indicates he is on a waitlist for [facility] program. Patient has also been calling [facility] daily. Patient reports he has been suicidal when he is intoxicated. Patient admits to self - injurious behavior as well by cutting in the past two weeks. Patient reports he was admitted inpatient at [facility] for psychiatry in the past month for mental health. Patient's zach Matute states "He hasnt been doing well at all...drinking a lot...he is not able to stay sober....his depression has been really bad...he threatens to hurt himself....says "I'll slit my wrists" or "I'll be done by the time you get here"....he's not safe." Zach also reports patient makes aggressive comments towards other when he is intoxicated. Zach reports patient has been staying with his mother but also has spent a night in his car and also checked in to a hotel room due to conflict with mother. Zach is concerned about patient's self injurious behavior as he has a history of cutting." Problem(s) Justifying Need for Admission: Thoughts of suicide Past Psychiatric History Past Diagnosis(es)- if any: Unspecified depressive disorder, alcohol use disorder Past Precipitating Factors- if any: Relapse to drinking - Include inpatient and outpatient treatment Treatment History: The patient's most recent inpatient psychiatric admission was March 18 - March 24, 2018 at [facility]'s inpatient psychiatric department. Prior to that, the patient was also in Inpatient Psychiatry at [facility] for depression and alcohol withdrawal (discharged on 03/05/2018). Prior to the previous admission in February 2018 the patient was at a detox program in [place] 10 days ago but left AMA and relapsed immediately. History of Suicide Attempts or Gestures There was a history of nonsuicidal self cutting once. It is not clear whether the there is history of james gene suicide attempts. At one point the patient's fianc at the time stated that he took an unknown amount of gabapentin and that he "attempted to jump out of her car when she was bringing him to the hospital "however the record indicates that the patient was actually threatening to do so and did not actually attempt to jump out. Substance Abuse History: Alcohol use disorder, severe Allergies: Coded Allergies: No Known Allergies (12/28/17) Home Med List: He reported that he was in fact taking sertraline 100 mg daily and gabapentin, these with the discharge medications from March 2018 he claims that he did not run out although it did not seem that he followed up following his discharge from the hospital - Include any medical condition(s) that may - impact the patient's recovery/remission Past Medical History: No significant physical health problems Past History Medical History Neurological: NONE EENT: NONE Cardiovascular: NONE Respiratory: NONE Gastrointestinal: NONE Hepatic: NONE Musculoskeletal: NONE Psychiatric: alcohol dependence, depression Endocrine: NONE Blood Disorders: NONE Cancer(s): NONE CERTIFIED DENTAL ASSISTANT/Reproductive: NONE History of MRSA: No History of VRE: No History of CDIFF: No Isolation History: Standard Influenza Vaccine: 05/08/18 Surgical History Surgical History: none Psychiatric Family/Social Hx Family History Psychiatric Illness: Denied family history of psychiatric illnesses Substance Use: Denied family history of substance abuse or alcoholism Suicides: Denied family history of suicides Social History Living Situation: The patient was living between his parents his father lives in [place] his mother lives locally Significant Relationships (family/friends): Mother, father, Carlos serrano Education: He completed high school, some college 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 - #1 Recognizing dangerous situations. - #2 Coping Skills. - #3 Basic information about quitting. Status of Tobacco Cessation Counseling: #1, #2 AND #3 Completed Cessation Med Status Nicotine Patch Ordered Alcohol Screening - ETOH screen POS if BAL >=80 or Audit-C>= M4/F3 Audit-C Score from Diag Assess: 12 Blood Alcohol Level: Laboratory Tests 05/26 518 Toxicology Serum Alcohol (<10 MG/DL) 358.0 Alcohol Use Screening Results: Pos per Audit C &/or BAL - If ETOH counseling indicated - the following topics are required. - #1 Express concern about the patient's - drinking at unhealthy levels, include informing - of national norms for moderate drinking: - men <= 14 drinks/week, max 4 drinks/occasion - women <= 7 drinks/week, max 3 drinks/occasion - #2 Providing feedback, including linking alcohol to - negative physical effects (liver injury, hypertension) - negative emotional effects (relationship problems and - depression) - negative occupational consequences (reduced work - performance) - #3 Advising the patient to abstain from alcohol or - to drink below national norms for moderate drinking - (as listed above). Status of ETOH Use Counseling: #1, #2 AND #3 Completed. Metabolic Screening - Screen if on a Neuroleptic Medication - Metabolic screening should include: - Blood Pressure, BMI, Glucose or Hgb A1c, & a - Lipid profile from within the past 365 days. Metabolic Screening Not Applicable, patient not on a neuroleptic. Exam and Plan Mental Status Examination Ambulation Status: Steady gait Appearance: Unremarkable appearance Attitude towards examiner: Cooperative Psychomotor activity: Normal psychomotor activity Behavior: No abnormal or bizarre behaviors Quality of speech: Normal speech Affect: Euthymic Mood: Depressed mood Suicidal Ideation: Denied thoughts of suicide today Homicidal Ideation: Denied thoughts of homicide today Hallucinations: Denied hallucinations Paranoid/Delusional Material: Denies feeling paranoid, there were no delusions Difficulties with thought organization: Coherent, no disorganization of thought process Insight: Partial insight Judgment: Questionable judgment Orientation: Alert and oriented to time place and person. Cognition: Did not seem to have difficulties with information processing Memory Function: No evidence of short-term memory impairment. Estimate of intellectual functioning: Average Assets/Strengths Patient Identified Assets/Strengths: Patient is intelligent, has a supportive family, and is resourceful Impression/Plan Impression and Plan: 27-year-old single white male with significant history of alcohol use, he presents back to the inpatient psychiatric unit because of suicidal thinking in the context of relapsing to daily drinking. 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 Factors: Patient will be discharge if he continues to deny thoughts of suicide for 2 consecutive days
[2018-05-27 07:48] VITALS: BP 130/67
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
[2018-05-27 11:36] VITALS: BP 124/82
--- NOTE | 2018-05-27 12:06 | SOCIAL WORKER PROG NOTE PSYCH ---
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 He was engaged and cooperative during the meeting.
--- NOTE | 2018-05-27 15:14 | SOCIAL WORKER PROG NOTE PSYCH ---
Social Work Progress Note Progress Note Met with Amauri this afternoon. He shared that since his last discharge from [facility] he had stayed with his Father for a brief time and was working with him and doing well. Maintained sobriety for a couple of weeks, but then relapsed. He has been currently living with his Mother most days. Reports on occasion he stays with a friend or at his fiance's. Stayed in his car a couple of times because he said he couldn't return to his Mother's and didn't have anywhere else to go. Mom and him are fighting occasionally and Mom is struggling with her own sobriety. 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 He shared his frustrations in doing so, as he didn't realize it would take long. Reports that he is on the waiting list at [facility] in [place] and he has been referred to [place]. Let him know we will help connect with them and other programs he may want to be referred to. He will need a PPD and recent physical to send to them. Appears ready and accepting at this point to go into a program. Empathized with the feeling he may be having at this point. Reported no SI and said that he only has those thoughts when he is drinking. Talked about the things he has in his life if he could get his drinking under control. He has been attending AA meetings and obtained a sponsor. Reports despite this process he has been drinking 10 or more drinks of 100 proof hard liquor. Asked about withdrawal symptoms today? He said some upset stomach, but nothing else. Reports feeling a bit restless/ anxious about calling places and finding a place to go. Open to having a phone conference with his Mother. Stated he would return to her house if he had to wait somewhere in the meantime. Told him I was concerned about that plan, due to Mom's drinking. Advised against it.
[2018-05-27 15:51] VITALS: BP 131/84
[2018-05-27 20:22] VITALS: BP 143/84
[2018-05-27 20:23] VITALS: BP 143/84
[2018-05-28] VITALS (7 sets, daily range): BP systolic 115–147; BP diastolic 71–91
--- NOTE | 2018-05-28 07:42 | CP SOUTH PROGRESS NOTE PSYCH ---
Psych (Inpt) Progress Note Progress Note Amauri is 27-year-old single white male with alcohol use disorder, sever who was admitted due to voicing suicidal thinking in the context of relapsing to daily drinking. 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 Team members included: LCSWs, RNs, OTR/ L, Activities Therapist, and Psychiatrist. Vital Signs: Date Time Temp Pulse Resp B/P B/P Pulse 05/28 0743 96.4 79 119/76 05/28 0735 96.4 79 119/76 05/27 2023 98.1 72 143/84 Mental Status Examination: Amauri was steady on his feet. He had disrupted sleep because his roommate has obstructive sleep apnea/snores very loud, also last night the alarm on the unit went off and he woke up and could not go back to sleep. Cooperative; Normal psychomotor activity, no abnormal or bizarre behaviors, normal speech Affect was of good range/euthymic Mood: Depressed mood, Denied thoughts of suicide today, Denied thoughts of homicide today Denied hallucinations, Denies feeling paranoid, there were no delusions, Coherent, no disorganization of thought process, Partial insight, Questionable judgment, Alert and oriented to time place and person. Did not seem to have difficulties with information processing. No evidence of short-term memory impairment. Treatment Plan Update: Detoxification using the [facility] protocol Reduce regular Ativan to 1.5 mg today in divided doses, 1 mg tomorrow, half a milligram on Thursday then stop Continue sertraline 100 mg daily Gabapentin 600 mg 3 times daily Continue other medications unchanged Increase Gabapentin to 600 mg 3 times daily Gabapentin 600 MG 0800,1400,1999 Gabapentin 600 MG Q4 HRS NEEDED PRN Haloperidol 5 MG Q6P PRN Hydrocortisone 1 JHOANA TID Lorazepam 1 MG AT BEDTIME Lorazepam 0.5 MG 0900,1400 Lorazepam 2 MG Q6P PRN Lorazepam 2 MG Q4 HRS NEEDED PRN Lorazepam 1 MG Q4 HRS NEEDED PRN Multivitamins 1 TAB DAILY Nicotine 21 MG DAILY Nicotine 2 MG Q2 HRS NEEDED PRN Sertraline HCl 100 MG DAILY Thiamine HCl 100 MG DAILY Trazodone HCl 50 MG AT BEDTIME NEED.. Trazodone HCl 50 MG AT BEDTIME NEED..
--- NOTE | 2018-05-28 09:12 | SOCIAL WORKER PROG NOTE PSYCH ---
Social Work Progress Note Progress Note Psychiatric CHW Note On 05.27.18 Met with pt to go over d/c plan and rehab options. Pt signed releases for [facility] and [facility]. Referrals will be faxed 05.28.18 as the social is not yet available. Faxed referral to Danis Adler) on 05.28.18 at 1:54pm. Faxed referral to Madeline Ring on 05.28.18 at 1:56pm. Faxed referral to Marta GIBBONS on 05.28.18 at 2:24pm and would like to speak with the pt directly as well regarding the referral (Angélica Petersen [facility] will notify pt and provide contact information during her check in with the pt). Faxed referral to [place] on 05.28.18 at 2:26pm. Faxed referral to [facility] on 05.28.18 at 3:25pm. Neva Motley (Tish) Psychiatric CHW
--- NOTE | 2018-05-28 17:17 | SOCIAL WORKER PROG NOTE PSYCH ---
Social Work Progress Note Progress Note Received a call from Amauri's Mother today. She shared her concerns over Amauri's drinking and behavior and stated she couldn't take him in if he were discharged. She wanted to ensure that we were working to get Amauri into a rehab facility. I assured her we were trying, but there was no guarentee that would happen. She wanted to relay that if that were the case he could not stay with her. Also received messaged from Amauri's Father and Amauri's fiance Juju. Met with Amauri this afternoon. We called [facility] together and spoke with Mildred. She said that she had some questions regarding recent admission. She spoke with Amauri directly about reasons for admission. She said that there is a continued wait list at this time and he should also consider trying [facility]. Amauri and I discussed that option and he was agreeable to a referral. He stated that come Thursday he is leaving. He didn't see any point in staying after that. Told him that it appeared that he was not welcome to return to his Mother's house. He said he had other places he could stay, but wasn't specific. I told him I received a number of calls today with concern for his discharge plan. He didn't seem to care and stated he was leaving Thursday. Finds it difficult to be confined. Feels discouraged that he can't get into rehab right away. Encouraged him to try and remain hopeful. We attempted to call [facility], but only got voicemail. Spoke with his therapist Charito Candelario She called to discuss his discharge plan. I let her know we were attempting to get him into rehab. She said if he leave without going to rehab she can increase his visits to 3x's a week. She would like to know what happens on Thursday. Number is [phone].
[2018-05-29] VITALS (7 sets, daily range): BP systolic 106–124; BP diastolic 55–77
--- NOTE | 2018-05-29 20:19 | CP SOUTH PROGRESS NOTE PSYCH ---
Psych (Inpt) Progress Note Progress Note Include the following elements, when applicable: Involvement in the active treatment of the patient with behavioral observations of the patient and the patient's response to the treatment. Review of the ongoing treatment process in the context of the treatment plan. Indication of how multi-disciplinary staff members are carrying out the treatment plan. Plans for future interventions and recommendations for revision of the treatment plan. Liaison with other physicians/providers. Progress Note: The 27 years old well-built white male individual was seen on the unit today this afternoon patient was friendly and cooperative is a well-built tall individual athletic built and was able to maintain meaningful communication he was dressed appropriately for the indoor setting and was able to maintain good eye contact meaningful communication and denies of any intrusive thoughts and hallucinatory experiences he is alert and oriented to time place and person and is able to ambulate without an assistive devices and appears to be aware of his problems and is willing to consider the program which she has not been in the before and to look at options to get a stable job in the community he has no thoughts to hurt himself or others. Diagnostic impression Alcohol use disorder severe Recommend continue the current medication regimen and to have him call the alcohol rehab programs in the area to get admitted in follow-up grade in the community once stable Dictated by Dr. Khan ,thank you
[2018-05-30 08:32] VITALS: BP 107/65
--- NOTE | 2018-05-30 15:40 | CP SOUTH PROGRESS NOTE PSYCH ---
Psych (Inpt) Progress Note Progress Note Include the following elements, when applicable: Involvement in the active treatment of the patient with behavioral observations of the patient and the patient's response to the treatment. Review of the ongoing treatment process in the context of the treatment plan. Indication of how multi-disciplinary staff members are carrying out the treatment plan. Plans for future interventions and recommendations for revision of the treatment plan. Liaison with other physicians/providers. Progress Note: 27-year-old's old single white male patient was seen on the unit this afternoon. He was dressed appropriately for the indoor setting he was able to ambulate well without any assistive devices he did not show any abnormal motor patterns while ambulating and during the discussion in the office. He he has had good eye contact and was able to maintain meaningful communication with normal flow and rate and volume of speech. He denies of any intrusive thoughts or hallucinatory experiences he is alert and oriented to time place and person and hopes to have a place for her alcohol program by tomorrow. His mother is willing to help him in transportation to the program hard to have him home during the. Before a bed opens up in the program he has fair insight into his problems and is willing to go to the program and maintain sobriety in the future and plans to follow up with outpatient programs after his discharge from the alcohol programs in the future Diagnostic impression alcohol dependence Recommendations continue current medications and recommend for him to call the programs tomorrow and work with his mom about housing interim and then follow-up in the outpatient program with AA supports after his discharge from the program Dictated by ,thank you
[2018-05-30 15:43] VITALS: BP 144/77
[2018-05-30 19:48] VITALS: BP 123/77
[2018-05-30 20:03] VITALS: BP 123/77
[2018-05-31 07:52] VITALS: BP 112/70
[2018-05-31 07:58] VITALS: BP 112/70
--- NOTE | 2018-05-31 09:01 | CP SOUTH PROGRESS NOTE PSYCH ---
Psych (Inpt) Progress Note Progress Note I reviewed Dr. Khan's notes for the weekend of 05/29 and 2017. The patient's progress, treatment plan, and aftercare plans were discussed in the treatment team meeting this morning. Team members included: LCSWs, RNs, Activities Therapist, and Psychiatrist. 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 calm and cooperative; Normal psychomotor activity, no abnormal or bizarre behaviors, normal speech. He showed good range/euthymic affect Depressed mood, Denied thoughts of suicide today, Denied thoughts of homicide today denied hallucinations, denies feeling paranoid, there were no delusions, coherent, no disorganization of thought process, no difficulties with information processing. No evidence of short-term memory impairment. Treatment Plan Update: D/C to self-care [facility]idential Re[facility] judgment, Alert and oriented to time place and person. Did not seem to have difficulties with information processing. No evidence of short-term memory impairment. Treatment Plan Update: Detoxification using the [place] protocol Reduce regular Ativan to 1.5 mg today in divided doses, 1 mg tomorrow, half a milligram on Thursday then stop Continue sertraline 100 mg daily Gabapentin 600 mg 3 times daily Continue other medications unchanged
--- NOTE | 2018-05-31 11:33 | SOCIAL WORKER PROG NOTE PSYCH ---
Social Work Progress Note Progress Note Amauri presented as pleasant and optimistic. We met with him and Dr. Miguel. He stated that he is eager to go to a rehab, and needs to work on himself and his sobriety first before he can address other issues in his life. He will be discharging today at 12:30. His mother will be picking him up. He is waiting for an opening at [facility] or [facility]. He thinks that either one will be in place within the week. He stated that he would prefer going to [facility], but is willing to try [facility] as well. He is motivated to start a rehab program. He will be prescribed Antabuse for the time being until he is placed in a rehab facility. He had visits over the weekend to discuss his plan. His mother agreed to let him stay at her house until he is placed in a rehab facility. We talked about whether IOP should be in place, and he did not think so because he believes a rehab will be in place. His therapist agreed to see him three times a week for treatment, which he is in agreement with. He called his mother in our presence to discuss a ride home, and shared that he is starting Antabuse. Left a message for Charito CARUSO about Amauri's plan today. Have not heard back from her as of 2pm. Patient will need to follow up to schedule his appts.
[2018-05-31] MEDS ORDERED: NICOTINE PATCH1 EAC3 TOP (12:12)
[2018-05-31] MEDS ORDERED: GABAPENTIN600 M1 PO (12:12)
[2018-05-31] MEDS ORDERED: DISULFIRAM250 M1 PO (12:13)
--- NOTE | 2018-05-31 12:15 | Patient Discharge Instructions ---
Psych Discharge Inst General Discharge Information Reason for Admission: thoughts of suicide Psy Discharge Primary Diag+ Unspecified Depressive DO Psy Discharge Secondary Diag+ Alcohol Use Disorder Summary Tests/Major Procedures No significant abnormalities Studies Pending at DC: None Patient Instructions Contact Information Your Psychiatrist on [facility] was Dung Miguel MD * If you are experiencing an emergency related to this hospitalization, please call [phone] to contact the treating psychiatrist or the psychiatrist-on- call. * To Request a copy of your medical records, please contact the Medical Records Department at [phone]. * To request results of studies pending at the time of discharge, please call [phone]. * Continue your Medications until directed to stop by your Healthcare provider. General Medication Information Please continue to take your new medications and your continued home medications , unless otherwise indicated on your discharge medication list, or unless directed by your MD or [facility] to stop them. Special Instructions Diet Regular Activity Normal - Tobacco Use Treatment Offered Post DC Medications Offered: Script Given-See Med List Post DC Tobacco Treatment Plan: Refused Tobacco Tx Pgm - EtOH/Drug Use D/O Treatment Offered Post DC Medications Offered: Script Given-See Med List Post DC EtOH/SubAbuse TX Plan: Other SubAbuse/Dual Pgm Metabolic Screening Not Applicable, patient not on a neuroleptic. Advance Directives Does the Patient have Medical Advance Directives No/Refused further info Does Pt have Psychiatric Advance Directives? No/Refused further info Does Patient have a Designated Surrogate Decision Maker: No Information About Psychiatric Advance Directives Provided? Refused Discharge Plan Post Hospital Treatment Plan: Residential Rehab
[2018-05-31 12:16] VITALS: BP 149/80
--- NOTE | 2018-05-31 13:45 | SOCIAL WORKER PROG NOTE PSYCH ---
Social Work Progress Note Progress Note Psychiatric CHW Note On 05.31.18 faxed PPD results to Danis Bartholomew at 1:35pm and Marta Bonilla at 1: 36pm to complete the referral application. Neva Motley (Tish) Psychiatric CHW
--- NOTE | 2018-05-31 14:25 | SOCIAL WORKER PROG NOTE PSYCH ---
Social Work Progress Note Faxed Referral(s) Referred To: Charito CARUSO (therapist) Transition of Care Documents sent: Health Summary Faxed to: mailed to [address] [facility] Date faxed: 05/31/18 (mailed out, no fax number)
--- NOTE | 2018-05-31 17:29 | SOCIAL WORKER PROG NOTE PSYCH ---
Social Work Progress Note Progress Note The services requested require additional review. You will be contacted regarding the status of this request if further information is needed. An authorization decision will be made within the required timeframes and details of that decision may be found under the member's authorization history. Member Name Member ID Member Subscriber Name Subscriber ID PAIGE AMBROSIO [id number] 1990 PAIGE AMBROSIO [id number] Pended Authorization # Client Authorization # Type of Request [id number] CONCURRENT Date of Admission/ Start of Services Requested From Submission Date 05/26/2018 05/29/2018 05/31/2018 Level of Service Type of Service Level of Care Type of Care INPATIENT/[facility]OC Mental [facility] Inpatient Inpatient [facility] - Inpatient Hospital Reason Code P76 Provider Name & Address Provider ID Provider Alternate ID NPI # for Authorization JOSE LINDSAY [id number] [address] [place] [id number]
== END 2018-05-31 13:27 | DRG 754 ==
LOC: ERH → CP SOUTH 20:39 → ERHI 20:39 → CP SOUTH 22:29
PROVIDERS: Pediatrics
DX: F32.9 Major depressive disorder, single episode, unspecified (principal); F10.10 Alcohol abuse, uncomplicated
CPT/HCPCS: 80307; G0480; J0515; J1630; J3490